=== PATIENT | female | born 1960 | race Caucasian/White ===

== ENCOUNTER → 2023-10-13 10:40 | Outpatient (REF) | payer MEDICARE, OTHER, SELFPAY | LOC: HWRAD 10:40 | PROVIDERS: ATTENDING PHYSICIAN Internal Medicine Hematology & Oncology; FAMILY PHYSICIAN Nurse Practitioner Family | DX: D83.9 Common variable immunodeficiency, unspecified (principal); E80.21 Acute intermittent (hepatic) porphyria; R11.2 Nausea with vomiting, unspecified; D51.3 Other dietary vitamin B12 deficiency anemia | CPT/HCPCS: 76700 ==

== ENCOUNTER → 2023-12-02 11:01 | Outpatient (REF) | payer MEDICARE, OTHER, SELFPAY ==
[2023-12-02 12:21] LABS: % Basophils 0.9 % (0-2); % Eosinophils 2.1 % (0-6); % Immature Granulocytes 0.9 % (0-0.5); % Lymphocytes 23.8 % (20.5-51.1); % Monocytes 12.5 % (1.7-9.3); % Neutrophils 59.8 % (42.2-75.2); Absolute Basophils 0.1 10^3/uL (0-0.2); Absolute Eosinophils 0.1 10^3/uL (0-0.7); Absolute Immature Granulocytes 0.1 10^3/uL (0-0.05); Absolute Lymphocytes 1.3 10^3/uL (1.2-3.4); Absolute Monocytes 0.7 10^3/uL (0.1-0.6); Absolute Neutrophils 3.2 10^3/uL (1.4-6.5); Hematocrit 33.6 % (37.0-47.0); Hemoglobin 11.4 g/dL (12.0-16.0); Mean Corp Hgb Conc. 33.9 g/dL (33.0-37.0); Mean Corpuscular Hgb 29.9 pg (27.0-31.0); Mean Corpuscular Volume 88.2 fL (81.0-99.0); Nucleated Red Blood Cells % 0 %; Platelet Count 247 10^3/uL (130-400); Red Blood Cell Count 3.81 10^6/uL (4.20-5.40); Red Cell Dist. Width 12.3 % (11.5-14.5); White Blood Cell Count 5.3 10^3/uL (4.8-10.8)
[2023-12-02 13:11] LABS: TSH 1.04 uIU/ml (0.47-4.68)
[2023-12-04 11:24] LABS: RMSF IgG Antibodies <1:64 (<1:64); RMSF IgM Antibodies <1:64 (<1:64)
[2023-12-04 19:00] LABS: Ehrlichia chaffeensis IgG Ab <1:64 (<1:64); Ehrlichia chaffeensis IgM Ab < 1:16 (< 1:16)
[2023-12-05 12:58] LABS: Lyme Antibody Screen, EIA Negative (Negative)
== END ==
LOC: REG 11:01
PROVIDERS: ATTENDING PHYSICIAN Nurse Practitioner Family; REFERRING PHYSICIAN Internal Medicine Hematology & Oncology
DX: E80.20 Unspecified porphyria (principal); G43.009 Migraine without aura, not intractable, without status migrainosus; R33.9 Retention of urine, unspecified; M25.50 Pain in unspecified joint; Z87.19 Personal history of other diseases of the digestive system; R79.89 Other specified abnormal findings of blood chemistry; W57.XXXA Bitten or stung by nonvenomous insect and other nonvenomous arthropods, initial encounter; E78.5 Hyperlipidemia, unspecified
CPT/HCPCS: 36415; 84443; 85025; 86618; 86666; 86753; 86757

== ENCOUNTER 2024-01-10 09:27 | Emergency (ER) | payer MEDICARE, OTHER, SELFPAY ==
[2024-01-10 09:44] VITALS: BP 142/89
--- NOTE | 2024-01-10 10:06 | ED.GENMED ---
History of Present Illness
General
Chief Complaint: Urinary Symptoms
Source: patient
Exam Limitations: none
Time Seen by Provider: 01/10/24 09:55
Nursing documentation reviewed up to this point in time: agreed with
Travel History
Have you had any contact with someone who has COVID-19?: No
Do you have any symptoms of coronavirus? Fever > 100 degrees, chills, cough, shortness of breath, sore throat, loss of taste or smell, muscle aches, or headache?: No
History of Present Illness
History of Present Illness:
Patient with history of porphyria, status post Panhematin infusion last Tuesday, presents to ED secondary to 3-day history of recurrent generalized weakness, nausea, abdominal pain with bloating, and difficulty with urination. Patient was admitted
at [facility] 1 month ago for similar complaint. Denies fever or chills. Denies vomiting. Denies diarrhea. Denies headache. Denies dizziness. Patient states that her symptoms are similar to previous episodes of porphyria exacerbation.
Past History
Past History
ED Past Medical History: Arrthythmia, Other (Porphyria, history of neuropathy, dyspnea, mitral regurg, stomach ulcers, bowel polyps, partial bowel obstruction, chronic UTI, adrenal insufficiency with Elmore's disease, chronic pain syndrome,
hemochromatosis. Diverticulitis, UTI, Intussuseption) and Other (Porphyria); Negative Asthma, HTN, Hypercholesterolemia or NIDDM
ED Past Surgical History: Appendectomy, Cholecystectomy, and Other (mvrepair, hemorrhoidectomy, bladder biopsy)
Social History
Tobacco: Former smoker
Alcohol: None
Drug: None
Personal:
Living: with family
Employment: Not employed
Family History
Family History: Other (Noncontributory)
Review of Systems
Review of Systems
Allergies reviewed?: Yes
All Other Systems: ROS reviewed and negative except as documented in HPI and ROS
Constitutional: Reports no symptoms; Denies fever
Respiratory: Reports no symptoms
Cardiac: Reports no symptoms
ABD/GI: Reports abdominal pain and nausea; Denies vomiting or diarrhea
: Reports difficulty voiding
Musculoskeletal: Reports no symptoms
Skin: Reports no symptoms
Neurological: Reports no symptoms
Phy Exam
Physical Exam
Physical Exam:
Physical Exam
General: mild distress, not acutely ill. afebrile
Head: nc/at. eomi
Neck: supple. no meningeal signs.
Heart: s1/s2 regular rate and rhythm, no murmur. equal radial pulses.
Lungs: no acute respiratory distress. clear bilaterally
Abdomen: normal bowel sounds. mild distention noted with diffuse tenderness to palpation.
Neuro: alert and oriented. no focal neurological deficits
Skin: no rash
Psychiatric: well kept. interactive and cooperative
Extremities: no edema. no calf tenderness.
Course
Orders/Labs/Results
Orders:
Orders
01/10/24 10:02
Bladder Scan- Treatment ONCE
Morin Placement- Treatment ONCE
Reason for insertion: Acute Retention
01/10/24 10:03
0.9% Sodium Chloride 500 ml [Nss] 500 ml IV BOLUS
Ondansetron Injectable [Zofran] 4 mg IV NOW STA
01/10/24 10:04
Pantoprazole [Protonix IV] 40 mg IV NOW STA
01/10/24 10:09
Ketorolac [Toradol] 15 mg IV NOW STA
01/10/24 10:22
CR Abdomen - 1 View Urgent
Comment:
Reason For Exam: abdominal pain w constipation
01/10/24 10:38
Basic Metabolic Panel Urgent
Complete Blood Count/With Diff Urgent
Magnesium Urgent
Urinalysis Reflex To Culture Urgent
Date Specimen was Collected: 01/10/24
Time Specimen was Collected: 10:24
01/10/24 12:[address] Non Medication Order As Directed
Physician Order: Please remove morin catheter prior to discharge
Above order entered?: Yes
Abnormal Lab Results
01/10/24
10:38
RBC 4.04 L 10^6/uL
(4.20-5.40)
Hct 35.7 L %
(37.0-47.0)
Abs Immat Gran (auto) 0.1 H 10^3/uL
(0-0.05)
Absolute Lymphs (auto) 1.0 L 10^3/uL
(1.2-3.4)
Immature Gran % 0.7 H %
(0-0.5)
Neutrophils % 79.7 H %
(42.2-75.2)
Lymphocytes % 13.2 L %
(20.5-51.1)
Chloride 108 H mmol/L
(98-107)
01/10/24 10:38
01/10/24 10:38
Vital Signs
Initial and Last Documented VS:
Initial Vital Signs
Temp Pulse BP Pulse Ox
98.2 F 71 142/89 100
01/10/24 09:44 01/10/24 09:44 01/10/24 09:44 01/10/24 09:44
Last Documented Vital Signs
Temp Pulse Resp BP Pulse Ox
98.2 F 56 16 120/75 99
01/10/24 09:44 01/10/24 13:20 01/10/24 13:20 01/10/24 13:20 01/10/24 13:20
MDM/Problems Addressed
MDM/Problems Addressed:
Bladder scan noted. Bladder emptied with temporary insertion of Morin catheter. Blood work unremarkable. Patient otherwise remains hemodynamically stable and nontoxic-appearing. Morin catheter will be removed and patient will be discharged home
with short course of pain medication.
Discussed with on-call tools administrator, Dr. Adam. Agrees with plan for discharge home with close outpatient follow-up, for potential repeat hematin treatment. Patient agrees with treatment plan.
*Critical Care Note
Total Time (30-74mins, 75-104mins- exclusive of procedures): Not Applicable
ED Attending Note
-
Portions of this chart may have been created with voice recognition software.� Occasional wrong word or��sound alike� substitutions may have occurred due to the inherent limitations of voice recognition software.
Discharge Plan
Departure
Patient Disposition: Home (Routine Discharge)
Date of Disposition: 01/10/24
Time of Disposition: 12:36
Patient with high blood pressure during this ER visit?: Yes
Discharge Problem:
Abdominal pain
Instructions: Abdominal Pain, Adult ED
Prescriptions:
New
oxycodone-acetaminophen [Percocet] 5-325 mg Tablet
1 tab PO Q6HPRN PRN (Reason: pain) Qty: 6 0RF
No Action
citalopram 10 MG tablet
10 mg PO HS
gabapentin 300 MG capsule
300 mg PO BID
topiramate 100 MG tablet
150 mg PO BID
Linzess 290 MCG capsule
290 mcg PO HS
cholecalciferol (vitamin D3) 2,000 UNITS tablet
2,000 units PO DAILY
hydrocortisone 20 MG tablet
20 mg PO DAILY
Visbiome 112.5 billion cell Capsule
1 cap PO DAILY
tramadol 50 mg Tablet
50 mg PO BIDPRN PRN (Reason: moderate pain)
omeprazole 20 mg Tablet,Delayed Release (Dr/Ec)
20 mg PO DAILY
hydrocortisone 20 mg Tablet
10 mg PO HS
Xtampza ER 27 mg Cap,Sprinkl,Er12hr(Dont Crush)
27 mg PO BIDPRN PRN (Reason: severe pain)
Emgality Pen 120 mg/mL pen injector
120 mg SC MONTHLY
Panhematin
1 dose IV MONTHLY
immune globulin (human) (IgG)
1 dose IV MONTHLY
Referrals:
Yimi Rust DO [Active] -
Deana Harden CRNP [Family Provider] -
Activity Restrictions/Additional Instructions:
As discussed, please follow-up with your tools administrator upon discharge for further evaluation and treatment. Your prescription has been sent electronically to [facility] pharmacy in [place].
Interventions
Interventions:
*Risk Screen - Suicide Last Done: 01/10/24 10:35
*General Assessment Last Done: 01/10/24 10:35
*Neglect/Abuse Screening Last Done: 01/10/24 10:35
ED- Fall Risk Assessment Last Done: 01/10/24 10:35
*ED COVID-19 Vaccine History Last Done: 01/10/24 10:35
*Nursing Disposition Last Done: 01/10/24 13:20
ED-Female Genitourinary Assessment Last Done: 01/10/24 10:35
Discharge Date and Time
Discharge Date/Time: 01/10/24 12:55
Print Language: POLISH
[2024-01-10 10:27] VITALS: BP 132/91
[2024-01-10 10:35] VITALS: BMI 22.1
[2024-01-10] MEDS: NSS 500 IV (10:42)
[2024-01-10] MEDS: ZOFRAN 4 MG IV (10:42)
[2024-01-10] MEDS: PROTONIX IV 40 MG IV (10:43)
[2024-01-10] MEDS: TORADOL 15 MG IV (10:43)
[2024-01-10 10:51] LABS: Urine Albumin Negative (Neg - Trace); Urine Bilirubin Negative (Negative); Urine Character Clear (Clear); Urine Color Yellow; Urine Glucose Negative (Negative); Urine Ketone Negative (Negative); Urine Leukocyte Negative (Negative); Urine Nitrite Negative (Negative); Urine Occult Blood Negative (Negative); Urine Urobilinogen Negative (Neg - 1+)
[2024-01-10 10:53] LABS: % Basophils 0.5 % (0-2); % Eosinophils 1.1 % (0-6); % Immature Granulocytes 0.7 % (0-0.5); % Lymphocytes 13.2 % (20.5-51.1); % Monocytes 4.8 % (1.7-9.3); % Neutrophils 79.7 % (42.2-75.2); Absolute Eosinophils 0.1 10^3/uL (0-0.7); Absolute Immature Granulocytes 0.1 10^3/uL (0-0.05); Absolute Monocytes 0.4 10^3/uL (0.1-0.6); Absolute Neutrophils 5.9 10^3/uL (1.4-6.5); Hematocrit 35.7 % (37.0-47.0); Mean Corp Hgb Conc. 33.6 g/dL (33.0-37.0); Mean Corpuscular Hgb 29.7 pg (27.0-31.0); Mean Corpuscular Volume 88.4 fL (81.0-99.0); Mean Platelet Volume 9.6 fL (7.4-10.4); Nucleated Red Blood Cells % 0 %; Platelet Count 152 10^3/uL (130-400); Red Blood Cell Count 4.04 10^6/uL (4.20-5.40); Red Cell Dist. Width 14.4 % (11.5-14.5); White Blood Cell Count 7.5 10^3/uL (4.8-10.8)
[2024-01-10 10:59] LABS: Calcium 8.9 mg/dl (8.4-10.2); Carbon Dioxide 26 mmol/L (22-30); Glucose 98 mg/dl (70-99); Magnesium 2.2 mg/dl (1.6-2.3); Potassium 4.3 mmol/L (3.5-5.1); Sodium 139 mmol/L (135-145)
[2024-01-10 11:06] LABS: Blood Urea Nitrogen 17 mg/dl (7-17); Chloride 108 mmol/L (98-107); Estimated Creatinine Clearance 54 ml/min; eGFR > 60.00
[2024-01-10 11:51] VITALS: BP 117/72
[2024-01-10 12:00] VITALS: BP 111/73
[2024-01-10 12:48] VITALS: BP 120/75
--- NOTE | 2024-01-10 12:55 | EDRN ---
Reviewed discharge instructions with patient. Verbalized understanding. Ambulated with steady gait to the lobby.
[2024-01-10 13:20] VITALS: BP 120/75
== END 2024-01-10 12:55 | disposition home or self-care (01) ==
LOC: EMR 09:27
PROVIDERS: EMERGENCY PHYSICIAN Emergency Medicine; FAMILY PHYSICIAN Nurse Practitioner Family
DX: R10.9 Unspecified abdominal pain (principal); R11.0 Nausea; R53.1 Weakness; R14.0 Abdominal distension (gaseous); R03.0 Elevated blood-pressure reading, without diagnosis of hypertension; G62.9 Polyneuropathy, unspecified; E80.20 Unspecified porphyria; I34.0 Nonrheumatic mitral (valve) insufficiency; K57.92 Diverticulitis of intestine, part unspecified, without perforation or abscess without bleeding; G43.909 Migraine, unspecified, not intractable, without status migrainosus; I48.91 Unspecified atrial fibrillation; I73.9 Peripheral vascular disease, unspecified; K21.9 Gastro-esophageal reflux disease without esophagitis; E83.119 Hemochromatosis, unspecified; G89.4 Chronic pain syndrome; E27.1 Primary adrenocortical insufficiency; Z87.11 Personal history of peptic ulcer disease; Z87.891 Personal history of nicotine dependence; Z87.440 Personal history of urinary (tract) infections; Z90.49 Acquired absence of other specified parts of digestive tract; Z88.1 Allergy status to other antibiotic agents; Z88.8 Allergy status to other drugs, medicaments and biological substances
CPT/HCPCS: 99284; 96374; 96375 ×2; 96361; 51701; 51798; 74018; 80048; 81003; 83735; 85025

== ENCOUNTER → 2024-01-23 08:33 | Outpatient (REF) | payer MEDICARE, OTHER, SELFPAY ==
[2024-01-23 09:36] LABS: % Basophils 0.5 % (0-2); % Immature Granulocytes 0.7 % (0-0.5); % Lymphocytes 16.9 % (20.5-51.1); % Neutrophils 73.9 % (42.2-75.2); Absolute Eosinophils 0.1 10^3/uL (0-0.7); Absolute Lymphocytes 0.9 10^3/uL (1.2-3.4); Absolute Monocytes 0.3 10^3/uL (0.1-0.6); Absolute Neutrophils 4.1 10^3/uL (1.4-6.5); Hematocrit 34.7 % (37.0-47.0); Hemoglobin 11.7 g/dL (12.0-16.0); Mean Corp Hgb Conc. 33.7 g/dL (33.0-37.0); Mean Platelet Volume 9.7 fL (7.4-10.4); Nucleated Red Blood Cells % 0 %; Platelet Count 221 10^3/uL (130-400); Red Cell Dist. Width 14.2 % (11.5-14.5); White Blood Cell Count 5.5 10^3/uL (4.8-10.8)
[2024-01-23 10:09] LABS: IgA 119 mg/dl (70-400); IgG 603 mg/dl (700-1600); IgM 34 mg/dl (40-230)
== END ==
LOC: OIDL 08:33
PROVIDERS: ATTENDING PHYSICIAN Internal Medicine Hematology & Oncology
DX: D83.9 Common variable immunodeficiency, unspecified (principal); E80.21 Acute intermittent (hepatic) porphyria; R11.2 Nausea with vomiting, unspecified; D51.3 Other dietary vitamin B12 deficiency anemia; D80.1 Nonfamilial hypogammaglobulinemia
CPT/HCPCS: 82784; 85025

== ENCOUNTER → 2024-02-15 06:26 | Day surgery (SDC) | payer MEDICARE, OTHER, SELFPAY | LOC: GI 06:26 | PROVIDERS: ATTENDING PHYSICIAN Internal Medicine; FAMILY PHYSICIAN Nurse Practitioner Family | DX: K29.50 Unspecified chronic gastritis without bleeding (principal); K22.4 Dyskinesia of esophagus; K44.9 Diaphragmatic hernia without obstruction or gangrene; R13.10 Dysphagia, unspecified | CPT/HCPCS: 43249; 43239; 88305; 88342 ==

== ENCOUNTER → 2024-03-08 14:38 | Outpatient (REF) | payer MEDICARE, OTHER, SELFPAY ==
[2024-03-08 16:46] LABS: ALT (SGPT) 12 U/L (0-35); AST (SGOT) 20 U/L (14-36); Albumin 4.3 g/dl (3.5-5.0); Alkaline Phosphatase 63 U/L (38-126); Amylase 135 U/L (30-110); Blood Urea Nitrogen 17 mg/dl (7-17); Calcium 8.8 mg/dl (8.4-10.2); Carbon Dioxide 27 mmol/L (22-30); Chloride 107 mmol/L (98-107); Glucose 77 mg/dl (70-99); Lipase 189 U/L (23-300); Potassium 3.8 mmol/L (3.5-5.1); Sodium 140 mmol/L (135-145); Total Bilirubin 0.2 mg/dl (0.2-1.3); eGFR > 60.00
[2024-03-08 16:55] LABS: Total Protein 6.6 g/dl (6.3-8.2)
[2024-03-08 17:17] LABS: TSH Reflex To Free T4 1.44 uIU/ml (0.47-4.68)
== END ==
LOC: RAD 14:38
PROVIDERS: ATTENDING PHYSICIAN Nurse Practitioner Family
DX: R14.0 Abdominal distension (gaseous) (principal); H66.90 Otitis media, unspecified, unspecified ear; F41.9 Anxiety disorder, unspecified
CPT/HCPCS: 36415; 74019; 80053; 82150; 83690; 84443

== ENCOUNTER → 2024-03-10 09:58 | Outpatient (REF) | payer MEDICARE, OTHER, SELFPAY | LOC: RAD 09:58 | PROVIDERS: ATTENDING PHYSICIAN Otolaryngology Facial Plastic Surgery; FAMILY PHYSICIAN Nurse Practitioner Family; REFERRING PHYSICIAN Internal Medicine Hematology & Oncology | DX: J32.0 Chronic maxillary sinusitis (principal) | CPT/HCPCS: 70486 ==

== ENCOUNTER → 2024-03-22 10:46 | Outpatient (REF) | payer MEDICARE, OTHER, SELFPAY ==
[2024-03-22 11:53] LABS: % Basophils 0.6 % (0-2); % Eosinophils 2.4 % (0-6); % Immature Granulocytes 0.2 % (0-0.5); % Lymphocytes 24.3 % (20.5-51.1); % Monocytes 7.6 % (1.7-9.3); % Neutrophils 64.9 % (42.2-75.2); Absolute Eosinophils 0.1 10^3/uL (0-0.7); Absolute Lymphocytes 1.3 10^3/uL (1.2-3.4); Absolute Monocytes 0.4 10^3/uL (0.1-0.6); Absolute Neutrophils 3.5 10^3/uL (1.4-6.5); Hematocrit 35.2 % (37.0-47.0); Hemoglobin 11.8 g/dL (12.0-16.0); Mean Corp Hgb Conc. 33.5 g/dL (33.0-37.0); Mean Corpuscular Hgb 30.5 pg (27.0-31.0); Mean Platelet Volume 10.2 fL (7.4-10.4); Nucleated Red Blood Cells % 0 %; Platelet Count 162 10^3/uL (130-400); Red Blood Cell Count 3.87 10^6/uL (4.20-5.40); Red Cell Dist. Width 13.4 % (11.5-14.5); White Blood Cell Count 5.4 10^3/uL (4.8-10.8)
[2024-03-22 12:05] LABS: Erythrocyte Sed Rate 11 mm/hour (0-20)
[2024-03-22 12:35] LABS: ALT (SGPT) 10 U/L (0-35); AST (SGOT) 19 U/L (14-36); Creatine Phosphokinase 70 U/L (30-135); Total Protein 6.4 g/dl (6.3-8.2)
[2024-03-22 12:40] LABS: C-Reactive Protein < 5.00 mg/L (0.0-10.00)
[2024-03-22 13:03] LABS: Glycohemoglobin (HgbA1c) 5.7 % (4.0-5.6)
[2024-03-22 13:11] LABS: TSH 1.95 uIU/ml (0.47-4.68)
[2024-03-22 13:30] LABS: Vitamin B12 596 pg/ml (239-931)
[2024-03-22 15:22] LABS: Lyme Antibody Screen, EIA Negative (Negative)
[2024-03-22 17:59] LABS: HIV Combo Negative (Negative)
[2024-03-22 18:07] LABS: Hepatitis C Antibody Negative (Negative)
[2024-03-23 14:47] LABS: Syphilis/T. pallidum Ab Reflex Negative (Negative)
[2024-03-23 22:13] LABS: ANA, IgG Reflex to HEp-2 None Detected (None Detected)
[2024-03-25 00:57] LABS: Albumin 4.22 g/dL (3.75-5.01); Alpha 1 Globulin 0.23 g/dL (0.19-0.46); Alpha 2 Globulin 0.64 g/dL (0.48-1.05); Free Kappa Light Chains,Quant 13.44 mg/L (3.30-19.40); Free Lambda Light Chains,Quant 12.29 mg/L (5.71-26.30); IgA 113 mg/dL (68-408); IgG 579 mg/dL (768-1632); IgM 29 mg/dL (35-263); Immunofixation Electrophoresis IFE Done; Kappa/Lambda Fr Light Ratio 1.09 (0.26-1.65); Total Protein-Electrophoresis 6.2 g/dL (6.3-8.2)
== END ==
LOC: REG 10:46
PROVIDERS: ATTENDING PHYSICIAN Internal Medicine Hematology & Oncology; FAMILY PHYSICIAN Nurse Practitioner Family; REFERRING PHYSICIAN Psychiatry & Neurology Neurology
DX: D83.9 Common variable immunodeficiency, unspecified (principal); E80.21 Acute intermittent (hepatic) porphyria; R11.2 Nausea with vomiting, unspecified; D51.3 Other dietary vitamin B12 deficiency anemia; D80.1 Nonfamilial hypogammaglobulinemia; R26.89 Other abnormalities of gait and mobility; E83.119 Hemochromatosis, unspecified; R94.6 Abnormal results of thyroid function studies
CPT/HCPCS: 36415; 82550; 82565; 82607; 82784; 83036; 83521; 84155; 84165; 84443; 84450; 84460; 85025; 85652; 86038; 86140; 86334; 86618; 86780; 86803; 87389

== ENCOUNTER → 2024-05-15 10:14 | Outpatient (REF) | payer MEDICARE, OTHER, SELFPAY | LOC: WDC 10:14 | PROVIDERS: ATTENDING PHYSICIAN Nurse Practitioner Family | DX: N64.59 Other signs and symptoms in breast (principal); L29.89 Other pruritus | CPT/HCPCS: 76642; 77062; 77066 ==

== ENCOUNTER → 2024-06-27 08:38 | Outpatient (REF) | payer MEDICARE, OTHER, SELFPAY | LOC: PAVMRI 08:38 | PROVIDERS: ATTENDING PHYSICIAN Nurse Practitioner Family | DX: G89.29 Other chronic pain (principal); M25.511 Pain in right shoulder | CPT/HCPCS: 73221 ==

== ENCOUNTER → 2024-09-14 12:31 | Outpatient (REF) | payer MEDICARE, OTHER, SELFPAY | LOC: PAVMRI 12:31 | PROVIDERS: ATTENDING PHYSICIAN Psychiatry & Neurology Neurology; FAMILY PHYSICIAN Nurse Practitioner Family | DX: G43.111 Migraine with aura, intractable, with status migrainosus (principal); R41.3 Other amnesia; R26.89 Other abnormalities of gait and mobility | CPT/HCPCS: 70553; A9575 ==

== ENCOUNTER → 2024-09-25 10:22 | Outpatient (REF) | payer MEDICARE, OTHER, SELFPAY ==
[2024-09-25 15:38] LABS: ALT (SGPT) 20 U/L (0-35); AST (SGOT) 23 U/L (14-36); Albumin 4.4 g/dl (3.5-5.0); Alkaline Phosphatase 54 U/L (38-126); Blood Urea Nitrogen 18 mg/dl (7-17); Carbon Dioxide 26 mmol/L (22-30); Chloride 106 mmol/L (98-107); Glucose 102 mg/dl (70-99); HDL Cholesterol 68 mg/dl; LDL Cholesterol, Calculated 200 mg/dl; Potassium 4.3 mmol/L (3.5-5.1); Sodium 138 mmol/L (135-145); Total Bilirubin 0.6 mg/dl (0.2-1.3); Total Cholesterol 287 mg/dl (50-199); Total Protein 6.3 g/dl (6.3-8.2); Triglyceride 97 mg/dl (10-149); Very Low Density Lipoprotein 19 mg/dl (0-30); eGFR > 60.00
== END ==
LOC: REG 10:22
PROVIDERS: ATTENDING PHYSICIAN Nurse Practitioner Family
DX: R79.89 Other specified abnormal findings of blood chemistry (principal); Z13.220 Encounter for screening for lipoid disorders
CPT/HCPCS: 36415; 80053; 80061

== ENCOUNTER → 2024-11-27 10:31 | Outpatient (REF) | payer MEDICARE, OTHER, SELFPAY ==
[2024-11-27 11:12] LABS: % Basophils 0.5 % (0-2); % Eosinophils 1.4 % (0-6); % Immature Granulocytes 0.3 % (0-0.5); % Lymphocytes 14.5 % (20.5-51.1); % Monocytes 4.9 % (1.7-9.3); % Neutrophils 78.4 % (42.2-75.2); Absolute Eosinophils 0.1 10^3/uL (0-0.7); Absolute Lymphocytes 0.9 10^3/uL (1.2-3.4); Absolute Monocytes 0.3 10^3/uL (0.1-0.6); Hematocrit 39.4 % (37.0-47.0); Mean Corpuscular Hgb 30.5 pg (27.0-31.0); Mean Corpuscular Volume 92.5 fL (81.0-99.0); Mean Platelet Volume 9.2 fL (7.4-10.4); Nucleated Red Blood Cells % 0 %; Platelet Count 183 10^3/uL (130-400); Red Blood Cell Count 4.26 10^6/uL (4.20-5.40); White Blood Cell Count 6.3 10^3/uL (4.8-10.8)
[2024-11-27 12:23] LABS: Ferritin 77.1 ng/ml (11.1-264.0)
[2024-11-27 13:14] LABS: ALT (SGPT) 11 U/L (0-35); AST (SGOT) 18 U/L (14-36); Albumin 4.5 g/dl (3.5-5.0); Alkaline Phosphatase 62 U/L (38-126); Direct Bilirubin 0.2 mg/dl (0.0-0.4); Total Bilirubin 0.6 mg/dl (0.2-1.3); Total Protein 6.4 g/dl (6.3-8.2)
== END ==
LOC: REG 10:31
PROVIDERS: ATTENDING PHYSICIAN Internal Medicine Hematology & Oncology; FAMILY PHYSICIAN Family Medicine
DX: D83.9 Common variable immunodeficiency, unspecified (principal); E80.21 Acute intermittent (hepatic) porphyria; R11.2 Nausea with vomiting, unspecified; D51.3 Other dietary vitamin B12 deficiency anemia; D80.1 Nonfamilial hypogammaglobulinemia; E86.0 Dehydration
CPT/HCPCS: 36415; 80076; 82728; 85025

== ENCOUNTER → 2024-12-19 14:04 | Outpatient (REF) | payer MEDICARE, OTHER, SELFPAY ==
[2024-12-19 15:53] LABS: ALT (SGPT) 13 U/L (0-35); AST (SGOT) 20 U/L (14-36); Albumin 4.2 g/dl (3.5-5.0); Alkaline Phosphatase 47 U/L (38-126); Blood Urea Nitrogen 14 mg/dl (7-17); Calcium 9.1 mg/dl (8.4-10.2); Carbon Dioxide 27 mmol/L (22-30); Glucose 81 mg/dl (70-99); Sodium 141 mmol/L (135-145); Total Bilirubin 0.4 mg/dl (0.2-1.3); Total Protein 6.4 g/dl (6.3-8.2); eGFR > 60.00
[2024-12-19 16:04] LABS: Chloride 105 mmol/L (98-107)
[2024-12-19 16:55] LABS: Folate 11.1 ng/ml (2.76-20); Vitamin B12 716 pg/ml (239-931)
[2024-12-20 12:11] LABS: Rheumatoid Agglutinin Less Than 10 IU (<10 IU)
== END ==
LOC: REG 14:04
PROVIDERS: ATTENDING PHYSICIAN Nurse Practitioner Family
DX: M25.551 Pain in right hip (principal); M25.552 Pain in left hip; M54.50 Low back pain, unspecified; M79.605 Pain in left leg; M62.838 Other muscle spasm; E80.29 Other porphyria; R79.89 Other specified abnormal findings of blood chemistry; Z79.899 Other long term (current) drug therapy
CPT/HCPCS: 36415; 73522; 80053; 82607; 82746; 86430

== ENCOUNTER 2025-03-28 13:59 | Inpatient (IN) | payer MEDICARE, OTHER, SELFPAY ==
[2025-03-25] VITALS (9 sets, daily range): BP systolic 110–137; BP diastolic 73–94; BMI 21.5; BMI 21.2
--- NOTE | 2025-03-25 11:46 | ED.GENMED ---
History of Present Illness
General
Chief Complaint: Urinary Symptoms
Source: patient
Exam Limitations: none
Time Seen by Provider: 03/25/25 11:18
Nursing documentation reviewed up to this point in time: agreed with
History of Present Illness
History of Present Illness:
Patient is a 64-year-old female with past medical history of diverticulitis neuropathy A-fib regurgitation mitral valve repair adrenal insufficiency Lagrange's disease, questionable porphyria, adrenal insufficiency hemochromatosis secondary to
Panhematin infusions presents to the ER for evaluation of abdominal pain. She has had abdominal discomfort for the past several days. She feels pressure when she tries to have a bowel movement or when she urinates. She does not feel that she is
completely emptying her bladder she is only voiding small amounts at a time. She does report however that she is not drinking a lot as well because she was concerned this may make her abdominal pain worse. she reports her last full bowel movement
was Tuesday 2 days ago despite taking 2 doses of milk of magnesia. She was hospitalized last week at [facility] for porphyria. She did receive a dose of Panhematin via her port.
She also was recently treated for UTI however was on Cipro and was told that this antibiotic was not sensitive. She was prescribed a new antibiotic however has not taken it yet.
She denies any fever or chills. She does feel nauseous.
Past History
Past History
ED Past Medical History: Arrthythmia, Other (Porphyria, history of neuropathy, dyspnea, mitral regurg, stomach ulcers, bowel polyps, partial bowel obstruction, chronic UTI, adrenal insufficiency with Paul's disease, chronic pain syndrome,
hemochromatosis. Diverticulitis, UTI, Intussuseption) and Other (Porphyria); Negative Asthma, HTN, Hypercholesterolemia or NIDDM
ED Past Surgical History: Appendectomy, Cholecystectomy, and Other (mvrepair, hemorrhoidectomy, bladder biopsy)
Social History
Tobacco: Former smoker
Alcohol: None
Drug: None
Personal:
Living: with family
Employment: Not employed
Family History
Family History: Other (Noncontributory)
Phy Exam
General Physical Exam
General Presentation: no apparent distress
General age: appears stated age
General Skin: warm and dry
General Habitus: normal
General Mental: alert
General Hydration: dry mucous membranes
Cardiovascular Exam
Cardiovascular Exam: regular rate/rhythm, no murmur and normal peripheral pulses
Pulmonary Exam
Pulmonary Exam: lungs clear and no respiratory distress
Gastrointestinal Exam
Gastrointestinal Exam: other (Abdomen distended tender throughout positive bowel sounds)
Neurological Exam
Neurological Exam: alert and oriented x3
Musculoskeletal Exam
Musculoskeletal Exam: full ROM
Skin Exam
Skin Exam: normal color and warm/dry
Psychiatric Exam
Psychiatric Exam: normal mood/affect
Course
Orders/Labs/Results
Orders:
Orders
03/25/25 11:23
Test Result ONCE
03/25/25 11:26
Complete Blood Count/With Diff Urgent
Comprehensive Metabolic Panel Urgent
HCG, Serum Qualitative Screen Urgent
Lipase Urgent
Urinalysis Reflex To Culture Urgent
Date Specimen was Collected: 03/25/25
Time Specimen was Collected: 11:22
03/25/25 11:54
Lactic Acid Urgent
03/25/25 12:15
CT Abd/pel W Iv And Oral Contr Urgent
Comment:
Reason For Exam: abd pain /constipation hx porphria
IV Insert/Care/Rem.- Treatment PRN
0.9% Sodium Chloride 1000 ml [Nss] 1,000 ml IV BOLUS
Iohexol [Omnipaque] See Protocol PO NOW STA
Ketorolac [Toradol] 15 mg IV NOW STA
Ondansetron Injectable [Zofran] 4 mg IV NOW STA
03/25/25 12:16
Electrocardiogram (*1) Stat
Reason for Study: Other
Other Reason for Exam: chest pain
EKG- Treatment ONCE
03/25/25 14:04
Morphine Sulfate 2 mg IV NOW STA
Abnormal Lab Results
03/25/25
11:26
RBC 4.00 L 10^6/uL
(4.20-5.40)
Hgb 11.9 L g/dL
(12.0-16.0)
Hct 35.9 L %
(37.0-47.0)
Abs Immat Gran (auto) 0.1 H 10^3/uL
(0-0.05)
Absolute Lymphs (auto) 1.1 L 10^3/uL
(1.2-3.4)
Immature Gran % 1.6 H %
(0-0.5)
Lymphocytes % 14.6 L %
(20.5-51.1)
Chloride 109 H mmol/L
(98-107)
BUN 18 H mg/dl
(7-17)
Glucose 108 H mg/dl
(70-99)
03/25/25 11:26
03/25/25 11:26
Vital Signs
Initial and Last Documented VS:
Initial Vital Signs
Temp Pulse Resp BP Pulse Ox
98.4 F 87 18 136/79 99
03/25/25 10:56 03/25/25 10:56 03/25/25 10:56 03/25/25 10:56 03/25/25 10:56
Last Documented Vital Signs
Temp Pulse Resp BP Pulse Ox
98.4 F 87 18 122/75 98
03/25/25 10:56 03/25/25 10:56 03/25/25 10:56 03/25/25 14:21 03/25/25 16:00
MDM/Problems Addressed
MDM/Problems Addressed:
As documented patient is a 64-year-old female with porphyria presents to the ER complaining of abdominal pain. She has been seen and admitted previously for this. She was recently admitted to [place] and had an infusion of Panhematin. She felt
constipated as well and felt some difficulty urinating and actually getting her urine out though no dysuria or fevers or burning. Patient presents awake alert she is distended on exam. She appears uncomfortable. She denies any fevers and is
afebrile. She was not retaining urine bladder scan was done by nurse. She is afebrile with a normal white count and her chemistry is unremarkable urinalysis negative. Patient has required pain medication here was given fluids. CAT scan does show
constipation however no obstruction and no other acute findings.
Patient continues to appear uncomfortable and does feel that the symptoms are consistent with her porphyria. Case discussed with hematology will admit for hydration/pain control.
Chronic conditions affecting care:
Porphyria
*Radiology
Radiology exam reviewed: radiology read reviewed (CAT scan shows a large volume of stool within the colon no other acute finding)
*Pulse Oximetry
SaO2: 99
Oxygen Mode of Delivery: Room air
Patient hypoxic: no
*Critical Care Note
Total Time (30-74mins, 75-104mins- exclusive of procedures): Not Applicable
Patient Management
Discussion with other providers: [facility] (Hematology Dr. Shane)
ED Attending Note
-
Portions of this chart may have been created with voice recognition software.� Occasional wrong word or��sound alike� substitutions may have occurred due to the inherent limitations of voice recognition software.
Discharge Plan
Departure
Patient Disposition: Admit
Date of Disposition: 03/25/25
Time of Disposition: 17:05
Admit to: Med/Surg
Admit to doctor: hospitaist
Presentation/result/management discussed w/ accepting MD/DO: Hospitalist
Patient with high blood pressure during this ER visit?: Yes
Condition: Fair
Discharge Problem:
Abdominal pain
Prescriptions:
No Action
citalopram 10 MG tablet
10 mg PO HS
gabapentin 300 MG capsule
300 mg PO BID
topiramate 100 MG tablet
150 mg PO BID
Linzess 290 MCG capsule
290 mcg PO HS
cholecalciferol (vitamin D3) 2,000 UNITS tablet
2,000 units PO DAILY
hydrocortisone 20 MG tablet
20 mg PO DAILY
Visbiome 112.5 billion cell Capsule
1 cap PO DAILY
tramadol 50 mg Tablet
50 mg PO BIDPRN PRN (Reason: moderate pain)
omeprazole 20 mg Tablet,Delayed Release (Dr/Ec)
20 mg PO DAILY
hydrocortisone 20 mg Tablet
10 mg PO HS
Xtampza ER 27 mg Cap,Sprinkl,Er12hr(Dont Crush)
27 mg PO BIDPRN PRN (Reason: severe pain)
Emgality Pen 120 mg/mL pen injector
120 mg SC MONTHLY
Panhematin
1 dose IV MONTHLY
immune globulin (human) (IgG)
1 dose IV MONTHLY
oxycodone-acetaminophen [Percocet] 5-325 mg Tablet
1 tab PO Q6HPRN PRN (Reason: pain) Qty: 6 0RF
Referrals:
Deana Harden CRNP [Family Provider, Family Practice]
Interventions
Interventions:
*Risk Screen - Suicide Last Done: 03/25/25 10:56
*General Assessment Last Done: 03/25/25 10:56
*Neglect/Abuse Screening Last Done: 03/25/25 10:56
*ED- Fall Risk Assessment Last Done: 03/25/25 11:06
*ED COVID-19 Vaccine History Last Done: 03/25/25 11:06
QJ-Blukkz-Dnmzsotvrv Assessment Last Done: 03/25/25 11:06
ED-Female Genitourinary Assessment Last Done: 03/25/25 11:06
Discharge Date and Time
Print Language: [place]
[2025-03-25 11:56] LABS: Urine Character Clear (Clear)
[2025-03-25 12:02] LABS: Hematocrit 35.9 % (37.0-47.0); Hemoglobin 11.9 g/dL (12.0-16.0); Mean Corp Hgb Conc. 33.1 g/dL (33.0-37.0); Mean Corpuscular Volume 89.8 fL (81.0-99.0); Nucleated Red Blood Cells % 0 %; Platelet Count 188 10^3/uL (130-400); Red Cell Dist. Width 13.1 % (11.5-14.5)
[2025-03-25] MEDS: NSS 1000 IV (12:22)
[2025-03-25] MEDS: ZOFRAN 4 MG IV (12:24)
[2025-03-25] MEDS: OMNIPAQUE 50 ML PO (12:24)
[2025-03-25] MEDS: TORADOL 15 MG IV (12:24)
[2025-03-25 12:38] LABS: HCG, Serum Qualitative Screen Negative
[2025-03-25 12:57] LABS: ALT (SGPT) 12 U/L (0-35); AST (SGOT) 15 U/L (14-36); Albumin 4.0 g/dl (3.5-5.0); Alkaline Phosphatase 47 U/L (38-126); Blood Urea Nitrogen 18 mg/dl (7-17); Calcium 8.5 mg/dl (8.4-10.2); Carbon Dioxide 24 mmol/L (22-30); Chloride 109 mmol/L (98-107); Estimated Creatinine Clearance 42 ml/min; Glucose 108 mg/dl (70-99); Lipase 149 U/L (23-300); Potassium 3.9 mmol/L (3.5-5.1); Sodium 139 mmol/L (135-145); Total Protein 6.4 g/dl (6.3-8.2); eGFR > 60.00
[2025-03-25] MEDS: MORPHINE SULFATE 2 MG IV (14:06)
[2025-03-25] MEDS: MORPHINE SULFATE 4 MG IV (16:58)
--- NOTE | 2025-03-25 18:22 | HPS.HSE ---
Family Physician
-
Family Physician: RAMU Ambrose
Chief Complaint
-
Abdominal pain
History of Present Illness
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
presents with a 1 week history of abdominal pain which is mid abdominal, lower pelvic radiates into the growing and wraps around to her backside, sharp, constant however at periods increases in intensity, not associated with anything, not relieved
by anything. Has not had a bowel movement in 1+ week. Over the weekend used mag citrate multiple doses and had a small bowel movement that was not significant. She has not been really eating or drinking much as she is scared to urinate because
she has to strain to pass urine and has not been eating much as she has not had a bowel movement and for lack of appetite over the past 1 week.
She tells me that she was recently admitted to [facility] for a porphyruria attack requiring Panhematin infusion
Past surgical history appendectomy cholecystectomy mitral valve repair hemorrhoidectomy bladder biopsy
Social history former smoker does not use alcohol nor illicit drug use
Medical History
Past Medical History
Past Medical History: Reports GERD, Valvular Disease, Psychiatric and Other
Past Surgical History: Reports Appendectomy
Social History
Tobacco: Former Smoker
Alcohol: None
Drug: None
Family History
Family History: Not pertinent
Allergies / Home Medications
Allergies reflects when Allergies were last updated in [email or web address].
Home Medications with original date entered in [email or web address]
Allergy/Medication List:
Allergies
Allergy/AdvReac Type Severity Reaction Status Date / Time
fluconazole (From Diflucan) Allergy Rash Verified 03/25/25 10:56
levofloxacin (From Levaquin) Allergy Rash Verified 03/25/25 10:56
Porphyria Allergy Review Uncoded 01/10/24 09:50
list of
medications
that are
unsafe
Home Medications
citalopram 10 mg tablet 10 mg PO HS Mental Health/Anxiety 07/16/17
gabapentin 300 mg capsule 300 mg PO HS mild Pain 07/16/17
topiramate 100 mg tablet 150 mg PO BID migraines 07/23/18
cholecalciferol (vitamin D3) 50 mcg (2,000 unit) tablet 2,000 units PO DAILY Supplement 01/15/19
hydrocortisone 20 mg tablet 20 mg PO DAILY Anti-inflammatory 05/19/20
Lactobac no.2-Bifidobac no.1-S. thermo 112.5 billion cell capsule (Visbiome) 1 cap PO DAILY Gastrointestinal issue 02/23/22
omeprazole 20 mg tablet,delayed release 20 mg PO DAILY Gastrointestinal Issue 03/02/23
tramadol 50 mg tablet 50 mg PO BIDPRN PRN moderate pain 03/02/23
hydrocortisone 20 mg tablet 10 mg PO QPM Anti-Inflammatory 06/20/23
galcanezumab-gnlm 120 mg/mL subcutaneous pen injector (Emgality Pen) 120 mg SC MONTHLY migraines 01/10/24
Review of Systems
-
A 12 point ROS was completed and negative except as noted: Yes
Physical Exam
Vital Signs
Vital Signs
Temp Pulse Resp BP Pulse Ox
98.4 F 87 18 137/94 98
03/25/25 10:56 03/25/25 10:56 03/25/25 10:56 03/25/25 16:54 03/25/25 16:10
Physical Exam
General: Pain
Laboratory Results
-
03/25/25 11:26
03/25/25 11:26
Laboratory Results
Lactic Acid 1.2 mmol/L (0.7-2.0) 03/25/25 11:54
Total Bilirubin 0.3 mg/dl (0.2-1.3) 03/25/25 11:26
AST 15 U/L (14-36) 03/25/25 11:26
ALT 12 U/L (0-35) 03/25/25 11:26
Alkaline Phosphatase 47 U/L (38-126) 03/25/25 11:26
Lipase 149 U/L (23-300) 03/25/25 11:26
Impression/Plan
-
NAD
Scleral Anicteric
MMM
No JVD
CTABL
RRR, S1/S2
Distended tenderness throughout no guarding positive bowel
Warm, Dry
AAOx3
Tearful
Intractable abdominal pain
Differential diagnosis broad however likely related to constipation as there is large volume stool within the colon versus acute porphyria attack
IV fluids with dextrose containing fluids
Bowel regimen with suppository and milk of molasses enema along with oral bowel regimen
Clear liquid diet advance as tolerated
If not improving may require GI/surgery consult for disimpaction
Consult hematology/oncology follows with Dr. Rust/Todd
GERD
Continue PPI
Migraine
Continue topiramate
Adrenal insufficiency
Continue hydrocortisone
Chronic regional pain syndrome
Continue gabapentin
Anxiety
Continue citalopram
Vitamin D insufficiency
Continue colecalciferol
DVT prophylaxis
Low molecular weight heparin
[2025-03-25] MEDS: TOPAMAX 150 MG PO (20:14)
[2025-03-25] MEDS: TYLENOL 650 MG PO (20:14)
[2025-03-25] MEDS: HYDROCORTONE/CORTEF 10 MG PO (20:15)
[2025-03-25] MEDS: MORPHINE SULFATE 1 MG IV ×2 (20:15→22:42)
[2025-03-25] MEDS: D5/0.45%NACL 1000 IV (20:17)
[2025-03-25] MEDS: CELEXA 10 MG PO (22:28)
[2025-03-25] MEDS: NEURONTIN 300 MG PO (22:28)
[2025-03-25] MEDS: ULTRAM 50 MG PO (22:28)
[2025-03-26] MEDS: TYLENOL PO ×2 (00:29→23:52)
[2025-03-26] MEDS: TYLENOL 650 MG PO ×5 (04:51→19:35)
[2025-03-26] MEDS: MORPHINE SULFATE 1 MG IV ×2 (04:52→08:35)
[2025-03-26 05:05] LABS: Hematocrit 35.2 % (37.0-47.0); Hemoglobin 11.7 g/dL (12.0-16.0); Mean Corp Hgb Conc. 33.2 g/dL (33.0-37.0); Mean Corpuscular Volume 88.9 fL (81.0-99.0); Platelet Count 180 10^3/uL (130-400); Red Cell Dist. Width 13.1 % (11.5-14.5)
[2025-03-26 05:27] LABS: Blood Urea Nitrogen 12 mg/dl (7-17); Calcium 8.1 mg/dl (8.4-10.2); Carbon Dioxide 22 mmol/L (22-30); Chloride 114 mmol/L (98-107); Estimated Creatinine Clearance 53 ml/min; Glucose 112 mg/dl (70-99); Magnesium 2.3 mg/dl (1.6-2.3); Potassium 4.0 mmol/L (3.5-5.1); Sodium 140 mmol/L (135-145); eGFR > 60.00
[2025-03-26 05:57] LABS: TSH 1.10 uIU/ml (0.47-4.68)
[2025-03-26 07:20] VITALS: BP 108/70
[2025-03-26] MEDS: TOPAMAX 150 MG PO ×2 (08:37→19:36)
[2025-03-26] MEDS: VITAMIN D3 (cholecalciferol) 50 MCG PO (08:37)
[2025-03-26] MEDS: PROTONIX 40 MG PO (08:38)
[2025-03-26] MEDS: VISBIOME 1 CAP PO (08:38)
[2025-03-26] MEDS: HYDROCORTONE/CORTEF 20 MG PO (08:38)
[2025-03-26] MEDS: D5/0.45%NACL 1000 IV (09:31)
[2025-03-26] MEDS: ZOFRAN 4 MG IV ×2 (10:14→21:44)
[2025-03-26] MEDS: MIRALAX 17 GRAMS PO (12:15)
[2025-03-26] MEDS: SENOKOT-S 1 TABLET PO (12:18)
--- NOTE | 2025-03-26 12:40 | W.PN.HOSP.TC ---
Today's Communication/Plan
-
IV Hydration
Hem eval
Bowel Reg with Milk of molassis
Repeat Obstruction series
Assessment / Plan
Assessment / Plan
NAD
Scleral Anicteric
MMM
No JVD
CTABL
RRR, S1/S2
Distended improved slightly tenderness throughout no guarding positive bowel sounds
Warm, Dry
AAOx3
Tearful
Intractable abdominal pain
Differential diagnosis broad however likely related to constipation as there is large volume stool within the colon versus acute porphyria attack
IV fluids with dextrose containing fluids
Bowel regimen with suppository and milk of molasses enema along with oral bowel regimen
Clear liquid diet advance as tolerated
If not improving may require GI/surgery consult for disimpaction
Consult hematology/oncology follows with Dr. Rust/Todd
GERD
Continue PPI
Migraine
Continue topiramate
Adrenal insufficiency
Continue hydrocortisone
Chronic regional pain syndrome
Continue gabapentin
Anxiety
Continue citalopram
Vitamin D insufficiency
Continue colecalciferol
DVT prophylaxis
Low molecular weight heparin
Anticipated Discharge: 24 - 48 hours
Subjective/Interval History
-
Date of Service: March 26, 2025
Seen and exmamined. No nwe complaints. No acute overnight events
BM extremely small but formed movement, but most is liquid
Still with abd pain
Objective Data
-
Labs:
Laboratory Results
03/26/25
04:37
WBC 9.5
Hgb 11.7 L
Hct 35.2 L
Plt Count 180
Sodium 140
Potassium 4.0
Chloride 114 H
Carbon Dioxide 22
BUN 12
Creatinine 0.8
Glucose 112 H
Calcium 8.1 L
Vital Signs:
Vital Signs
Temp Pulse Resp BP Pulse Ox
97.6 F 53 16 108/70 99
03/26/25 07:20 03/26/25 07:20 03/26/25 07:20 03/26/25 07:20 03/26/25 07:20
I&O
03/25/25 03/26/25 03/27/25
06:59 06:59 06:59
Intake Total 960 / 960
Balance 960 / 960
[2025-03-26] MEDS: DILAUDID 0.25 MG IV ×3 (13:02→21:53)
--- NOTE | 2025-03-26 13:58 | CON.ONC ---
Consultation
-
Date Consultation Requested: 03/26/25
Date Consultation Performed: 03/26/25
Requesting Provider: Dr. Nadir Del Cid
Performing Provider: Chandrika GUALLPA
Reason for Consultation: porphoryia
Impression
Impression
p/w abdominal pain, nausea which may reflect recurrent chronic constipation. She feels improved after moving her bowels overnight. ab xray today continues to show moderate fecal material thought the colon
AIP s/p panhematin 03/13/2025
Hx iron overload due to panhematin
Vitamin B12 deficency -receives parentaral B12 OP
Plan
Plan
constipation management per primary service
hold off on inpatient panhematin discussed with patient -agreeable since feels better after moving bowels
constipation may reflect chronic and recent increase in opioid use discussed with pt
check ferritin, B12
Has OP follow up with Dr. Rust 04/01/2025 for further management
Patient History
History of Present Illness
64yo F who presented with abdominal pain, nausea, and lower extremity discomfort. She reports no bowel movement in 7 days. She had similar symptoms with constipation recently during her [facility] admission. Her 03/25/2025 CT ab/pelvis showed a large stool
burden. She was admitted, started on D5/0.45% IVF, received colace/senna and miralax. She feels better after she moved her bowels overnight. She had been taking tramadol, approximately #180/month, escribed by her PCP, however, more recently taking
oxycodone prn for her intermittent lower abdomen 'stabbing' pain. She has used Tylenol, tramadol, ketorolac, IV morphine and IV hydromorphone since she has been admitted. She is also using zofran for nausea.
In brief, she carries a diagnosis of intermittent porphyria. She has most recently been treated with panhematin 03/13/2025 in the office.
Afebrile, no hypoxia or hypotension. Pt did not awaken to verbal stimuli or light tough. She was somewhat difficult to arrouse but oriented and appropriate when awake.
Past-Medical/Surgical History
PMH common variable immunodeficiency, nonfamilial hypogammaglobulinemia, b12 deficiency, acute intermittent porphyria, iron overload, peripheral neuropathy, jarocho's disease, empty sella syndrome, mitral regurgitation,
PSH: appendectomy cholecystectomy mitral valve repair hemorrhoidectomy bladder biopsy
Social former smoker, denies ETOH or recreational drugs. .
Family denies malignancy
Patient Medication
�Medication �Instructions �Recorded �Confirmed �Last Taken �Type
citalopram 10 mg tablet 10 mg PO HS Mental Health/Anxiety 07/16/17 03/25/25 01/09/24 History
gabapentin 300 mg capsule 300 mg PO HS mild Pain 07/16/17 03/25/25 01/10/24 History
topiramate 100 mg tablet 150 mg PO BID migraines 07/23/18 03/25/25 03/25/25 History
cholecalciferol (vitamin D3) 50 2,000 units PO DAILY Supplement 01/15/19 03/25/25 01/10/24 History
mcg (2,000 unit) tablet
hydrocortisone 20 mg tablet 20 mg PO DAILY Anti-inflammatory 05/19/20 03/25/25 03/25/25 History
Lactobac no.2-Bifidobac no.1-S. 1 cap PO DAILY Gastrointestinal 02/23/22 03/25/25 01/10/24 History
thermo 112.5 billion cell capsule issue
(Visbiome)
omeprazole 20 mg tablet,delayed 20 mg PO DAILY Gastrointestinal 03/02/23 03/25/25 01/10/24 History
release Issue
tramadol 50 mg tablet 50 mg PO BIDPRN PRN moderate pain 03/02/23 03/25/25 01/10/24 History
hydrocortisone 20 mg tablet 10 mg PO QPM Anti-Inflammatory 06/20/23 03/25/25 03/24/25 History
galcanezumab-gnlm 120 mg/mL 120 mg SC MONTHLY migraines 01/10/24 03/25/25 12/19/23 History
subcutaneous pen injector
(Emgality Pen)
Active Medications
Generic Name Dose Route Start Last Admin
Trade Name Freq PRN Reason Stop Dose Admin
Acetaminophen 650 mg 03/25/25 20:00 03/26/25 12:15
Acetaminophen 325 Mg Tablet PO 04/22/25 19:59 650 mg
Q4HWA LIZET Administration
Bisacodyl 10 mg 03/25/25 19:31
Bisacodyl 10 Mg Rectal Suppository RECTAL 04/22/25 19:30
[id number] PRN
constipation
Cholecalciferol 50 mcg 03/26/25 08:00 03/26/25 08:37
Cholecalciferol (Vitamin D3) 50 Mcg Tablet (2,000 Units) PO 04/23/25 07:59 50 mcg
DAILY LIZET Administration
Citalopram Hydrobromide 10 mg 03/25/25 22:00 03/25/25 22:28
Citalopram 10 Mg Tablet PO 04/22/25 21:59 10 mg
HS LIZET Administration
Gabapentin 300 mg 03/25/25 22:00 03/25/25 22:28
Gabapentin 300 Mg Capsule PO 04/22/25 21:59 300 mg
HS LIZET Administration
Hydrocortisone 20 mg 03/26/25 08:00 03/26/25 08:38
Hydrocortisone 20 Mg Tablet PO 04/23/25 07:59 20 mg
DAILY LIZET Administration
Hydrocortisone 10 mg 03/25/25 19:31 03/25/25 20:15
Hydrocortisone 20 Mg Tablet PO 04/22/25 19:30 10 mg
QPM LIZET Administration
Hydromorphone HCl 0.25 mg 03/26/25 12:39 03/26/25 13:02
Hydromorphone 0.25 Mg/0.5 Ml Syringe IV 04/09/25 12:38 0.25 mg
Q4HPRN PRN Administration
pain
Dextrose/Sodium Chloride 1,000 mls @ 80 mls/hr 03/25/25 19:31 03/26/25 09:31
D5/0.45%Nacl IV 1,000 mls
.[id number] LIZET Administration
Morphine Sulfate 1 mg 03/25/25 22:24 03/26/25 08:35
Morphine 2 Mg/Ml Syringe IV 04/08/25 22:23 1 mg
On Hold: 03/26/25 12:40 Q2HPRN PRN Administration
severe pain
Ondansetron HCl 4 mg 03/26/25 09:52 03/26/25 10:14
Ondansetron 4 Mg/2 Ml Vial IV 04/23/25 09:51 4 mg
Q6HPRN PRN Administration
NAUSEA/VOMITING
Pantoprazole Sodium 40 mg 03/26/25 08:00 03/26/25 08:38
Pantoprazole 40 Mg Delayed Release Tablet PO 04/23/25 07:59 40 mg
DAILY LIZET Administration
Polyethylene Glycol 17 grams 03/25/25 19:31 03/26/25 12:15
Polyethylene Glycol Powder 17 Grams Packet PO 04/22/25 19:30 17 grams
DAILYPRN PRN Administration
constipation
Senna/Docusate Sodium 1 tablet 03/25/25 19:31 03/26/25 12:18
Docusate W/Senna (Oly-Colace) Tablet PO 04/22/25 19:30 1 tablet
BIDPRN PRN Administration
constipation
Sodium Chloride 0 flush 03/25/25 20:00
Sodium Chloride 0.9% (Flush) Syringe IV 04/22/25 19:59
PER PROTOCOL LIZET
Topiramate 150 mg 03/25/25 20:00 03/26/25 08:37
Topiramate 100 Mg Tablet PO 04/22/25 19:59 150 mg
BID LIZET Administration
Tramadol HCl 50 mg 03/25/25 19:31 03/25/25 22:28
Tramadol Hcl 50 Mg Tablet PO 04/22/25 19:30 50 mg
BIDPRN PRN Administration
moderate pain
Review of Systems
-
ROS is notable for HPI, otherwise negative
Physical Exam
-
General: No Apparent Distress and Comfortable
HEENT: Moist Mucous Membranes; Negative Jaundice
Cardiology: Normal Sinus Rhythm
Pulmonary: Clear
GI: Soft and Distended
Extremities: Pulses Present; Negative Edema
Neurology: Non Focal
Skin: Warm
Psych: Calm
Labs
Lab Results
WBC 9.5 10^3/uL (4.8-10.8) 03/26/25 04:37
RBC 3.96 10^6/uL (4.20-5.40) L 03/26/25 04:37
Hgb 11.7 g/dL (12.0-16.0) L 03/26/25 04:37
Hct 35.2 % (37.0-47.0) L 03/26/25 04:37
MCV 88.9 fL (81.0-99.0) 03/26/25 04:37
MCH 29.5 pg (27.0-31.0) 03/26/25 04:37
MCHC 33.2 g/dL (33.0-37.0) 03/26/25 04:37
RDW 13.1 % (11.5-14.5) 03/26/25 04:37
Plt Count 180 10^3/uL (130-400) 03/26/25 04:37
MPV 9.4 fL (7.4-10.4) 03/26/25 04:37
Abs Immat Gran (auto) 0.1 10^3/uL (0-0.05) H 03/25/25 11:26
Absolute Neuts (auto) 5.8 10^3/uL (1.4-6.5) 03/25/25 11:26
Absolute Lymphs (auto) 1.1 10^3/uL (1.2-3.4) L 03/25/25 11:26
Absolute Monos (auto) 0.6 10^3/uL (0.1-0.6) 03/25/25 11:
Absolute Eos (auto) 0.1 10^3/uL (0-0.7) 03/25/25 11:
Absolute Basos (auto) 0.0 10^3/uL (0-0.2) 03/25/25 11:
Immature Gran % 1.6 % (0-0.5) H 03/25/25 11:
Neutrophils % 74.9 % (42.2-75.2) 03/25/25:
Lymphocytes % 14.6 % (20.5-51.1) L 03/25/25 11:
Monocytes % 7.1 % (1.7-9.3) 03/25/25 11:
Eosinophils % 1.3 % (0-6) 03/25/25:
Basophils % 0.5 % (0-2) 03/25/25 11:
Creatinine 0.8 mg/dL (0.6-1.0) 03/26/25 04:37
Vital Signs
Vital Signs
Temp Pulse Resp BP Pulse Ox
97.6 F 53 16 108/70 99
03/26/25 07:20 03/26/25 07:20 03/26/25 07:20 03/26/25 07:20 03/26/25 07:20
[2025-03-26 15:32] VITALS: BP 100/70
[2025-03-26] MEDS: HYDROCORTONE/CORTEF 10 MG PO (16:42)
[2025-03-26] MEDS: ULTRAM 50 MG PO (20:26)
[2025-03-26] MEDS: NEURONTIN 300 MG PO (21:45)
[2025-03-26] MEDS: CELEXA 10 MG PO (21:45)
[2025-03-26 23:20] VITALS: BP 119/76
[2025-03-27] MEDS: D5/0.45%NACL 1000 IV ×2 (01:49→14:51)
[2025-03-27] MEDS: DILAUDID 0.25 MG IV ×6 (02:09→21:17)
[2025-03-27] MEDS: TYLENOL PO ×2 (03:30→23:35)
[2025-03-27 06:13] LABS: Ferritin 117.0 ng/ml (11.1-264.0)
[2025-03-27 06:27] LABS: Vitamin B12 550 pg/ml (239-931)
[2025-03-27 07:24] VITALS: BP 126/79
[2025-03-27] MEDS: TOPAMAX 150 MG PO ×2 (08:04→20:12)
[2025-03-27] MEDS: TYLENOL 650 MG PO ×4 (08:04→20:12)
[2025-03-27] MEDS: HYDROCORTONE/CORTEF 20 MG PO (08:04)
[2025-03-27] MEDS: PROTONIX 40 MG PO (08:04)
[2025-03-27] MEDS: VITAMIN D3 (cholecalciferol) 50 MCG PO (08:05)
--- NOTE | 2025-03-27 08:14 | W.PN.ONC2 ---
Today's Communication / Plan
-
Continue constipation management. Outpatient Tx has not been successful. Needs aggressive bowel management protocol.
Holding off on Panhematin as discussed.
Abd x ray: Moderate fecal material throughout the colon. Progressed. No evidence of intestinal obstruction.
Patient known to GI. Might make sense for inpatient GI consult. Will defer to primary team.
Impression
Impression
p/w abdominal pain, nausea which may reflect recurrent chronic constipation. She feels improved after moving her bowels overnight. ab xray today continues to show moderate fecal material thought the colon
AIP s/p panhematin 03/13/2025
Hx iron overload due to panhematin
Vitamin B12 deficency -receives parentaral B12 OP
Plan
Plan
constipation management per primary service. Consider GI consult as she follows with them as outpatient.
Holding off on inpatient panhematin. SG discussed with patient -agreeable since feels somewhat better after moving bowels but still feels like this is a porphyria attack.
constipation may reflect chronic and recent increase in opioid use discussed with pt
ferritin = 117, B12 = 550; both normal
Has OP follow up with Dr. Rust 04/01/2025 for further management
Subjective/Objective
Chief Complaint
ACS Heme onc
Subjective
Constipated, abdominal distension. Leg pains. Feels like porphyria attack exacerbated by constipation. Saw GI as outpatient wasn't too helpful.
Vital Signs:
Vital Signs
Temp Pulse Resp BP Pulse Ox
98.2 F 54 14 119/76 99
03/26/25 23:20 03/26/25 23:20 03/26/25 23:20 03/26/25 23:20 03/26/25 23:20
Lab Results:
Laboratory Data
WBC 9.5 10^3/uL (4.8-10.8) 03/26/25 04:37
Hgb 11.7 g/dL (12.0-16.0) L 03/26/25 04:37
Plt Count 180 10^3/uL (130-400) 03/26/25 04:37
eGFR > 60.00 03/26/25 04:37
Physical Exam
HEENT: No Jaundice
Cardiology: S1 and S2
Pulmonary: Clear
GI: Distended
Extremities: No C/C/E
[2025-03-27] MEDS: COLACE 100 MG PO ×2 (12:02→20:12)
[2025-03-27] MEDS: MIRALAX 17 GRAMS PO ×2 (12:03→20:13)
[2025-03-27] MEDS: ZOFRAN 4 MG IV ×2 (12:31→21:17)
--- NOTE | 2025-03-27 12:37 | W.PN.HOSP.TC ---
Today's Communication/Plan
-
bowel regimen
repeat abdominal films tomorrow AM
Assessment / Plan
Assessment / Plan
Intractable abdominal pain
-Differential diagnosis broad however likely related to constipation as there is large volume stool within the colon versus acute porphyria attack
-IV fluids with dextrose containing fluids
-make Miralax BID, colace BID, dulcolax supp if no BM this afternoon
-patient concerned constipation triggering acute porphyria attack, appreciate Oncology
-continue diet
-repeat abdominal film tomorrow AM
-IV Dilaudid PRN severe pain
GERD
Continue PPI
Migraine
Continue topiramate
Adrenal insufficiency
Continue hydrocortisone
Chronic regional pain syndrome
Continue gabapentin
Anxiety
Continue citalopram
Vitamin D insufficiency
Continue colecalciferol
DVT prophylaxis
Low molecular weight heparin
Anticipated Discharge: 24 - 48 hours
Subjective/Interval History
-
Date of Service: March 27, 2025
patient complains of significant pain
she had BM yesterday
Objective Data
-
Labs:
Laboratory Results
03/27/25
04:56
Sodium Pending
Potassium Pending
Chloride Pending
Carbon Dioxide Pending
BUN Pending
Creatinine Pending
Glucose Pending
Calcium Pending
Vital Signs:
Vital Signs
Temp Pulse Resp BP Pulse Ox
98.3 F 56 16 126/79 98
03/27/25 07:24 03/27/25 07:24 03/27/25 07:24 03/27/25 07:24 03/27/25 07:24
I&O
03/26/25 03/27/25 03/28/25
06:59 06:59 06:59
Intake Total 960 / 960 720 / 720
Balance 960 / 960 720 / 720
Review of Systems
-
History Source: Patient
All other systems: Reviewed and negative
Physical Exam
-
General: Well Developed, Well Nourished and No Apparent Distress
HEENT: Normocephalic and Atraumatic
Respiratory: Clear to Auscultation; Negative Wheezes or Rhonchi
Cardiac: Regular Rhythm and S1/S2; Negative Murmur
GI: Soft and Other (distended, tenderness, no rebound or guarding )
Musculoskeletal: No Clubbing, No Cyanosis and No Edema
Neuro: AO x 3
Psych: Calm
Data Reviewed
-
Diagnostic Radiology: Report Reviewed by me
Labs: Labs Reviewed by me
[2025-03-27 13:22] LABS: Blood Urea Nitrogen 10 mg/dl (7-17); Calcium 8.0 mg/dl (8.4-10.2); Carbon Dioxide 21 mmol/L (22-30); Chloride 116 mmol/L (98-107); Estimated Creatinine Clearance 53 ml/min; Glucose 113 mg/dl (70-99); Magnesium 2.0 mg/dl (1.6-2.3); Potassium 3.6 mmol/L (3.5-5.1); Sodium 140 mmol/L (135-145); eGFR > 60.00
[2025-03-27] MEDS: DULCOLAX 10 MG RECTAL (14:46)
--- NOTE | 2025-03-27 15:12 | CM ---
Met with patient to obtain information for assessment. Patient stated that she lives with her spouse in a two story single home with three steps to enter. She described herself as independent with all of her ADLs, personal care, bathing and
dressing. She can cook, clean, do [employer] and laundry. Patient can drive and get to her own appointments and do all of her own shopping. Patient has not DME. She has never been to a SNF. She has not had VN.
Patient has a prescription plan and uses, [facility] in [place] for all of her medications.
Patient's PCP is, Deana Harden.
OBS letter signed and in chart.
Plan: Case management will continue to follow and assist with discharge planning. Patient would like to return home when stable.
[2025-03-27 15:18] VITALS: BP 111/67
[2025-03-27] MEDS: HYDROCORTONE/CORTEF 10 MG PO (17:59)
[2025-03-27] MEDS: CELEXA 10 MG PO (20:17)
[2025-03-27] MEDS: NEURONTIN 300 MG PO (20:17)
[2025-03-27 23:12] VITALS: BP 109/60
[2025-03-28] MEDS: DILAUDID 0.25 MG IV ×3 (00:22→09:24)
[2025-03-28] MEDS: TYLENOL 650 MG PO ×5 (00:27→20:44)
[2025-03-28] MEDS: D5/0.45%NACL 1000 IV (01:55)
[2025-03-28] MEDS: TYLENOL PO (04:26)
[2025-03-28 05:38] LABS: Blood Urea Nitrogen 9 mg/dl (7-17); Calcium 7.6 mg/dl (8.4-10.2); Carbon Dioxide 22 mmol/L (22-30); Chloride 117 mmol/L (98-107); Estimated Creatinine Clearance 47 ml/min; Glucose 97 mg/dl (70-99); Magnesium 2.0 mg/dl (1.6-2.3); Potassium 3.7 mmol/L (3.5-5.1); Sodium 142 mmol/L (135-145); eGFR > 60.00
[2025-03-28 07:00] VITALS: BP 123/75
[2025-03-28] MEDS: ZOFRAN 4 MG IV ×2 (09:21→20:47)
[2025-03-28] MEDS: COLACE 100 MG PO ×2 (09:24→20:44)
[2025-03-28] MEDS: VITAMIN D3 (cholecalciferol) 50 MCG PO (09:25)
[2025-03-28] MEDS: MIRALAX 17 GRAMS PO (09:25)
[2025-03-28] MEDS: TOPAMAX 150 MG PO ×2 (09:25→20:44)
[2025-03-28] MEDS: PROTONIX 40 MG PO (09:25)
[2025-03-28] MEDS: HYDROCORTONE/CORTEF 20 MG PO (09:25)
--- NOTE | 2025-03-28 10:17 | W.PN.HOSP.TC ---
Today's Communication/Plan
-
advance diet
pain control
follow up further Hematology recommendations
Assessment / Plan
Assessment / Plan
Intractable abdominal pain
Hx Porphyria
-Constipation likely contributed but now treated and she continues to have pain - concern for acute porphyria attack
-advance diet
-pain control
-OK to stop fluids
-follow up furtehr Hematology recs
GERD
Continue PPI
Migraine
Continue topiramate
Adrenal insufficiency
Continue hydrocortisone
Chronic regional pain syndrome
Continue gabapentin
Anxiety
Continue citalopram
Vitamin D insufficiency
Continue colecalciferol
DVT prophylaxis
Low molecular weight heparin
Anticipated Discharge: 24 - 48 hours
Subjective/Interval History
-
Date of Service: March 28, 2025
continues to have pain
despite relief from constipation
Objective Data
-
Labs:
Laboratory Results
03/28/25
04:45
Sodium 142
Potassium 3.7
Chloride 117 H
Carbon Dioxide 22
BUN 9
Creatinine 0.9
Glucose 97
Calcium 7.6 L
Vital Signs:
Vital Signs
Temp Pulse Resp BP Pulse Ox
97.9 F 53 16 123/75 99
03/28/25 07:00 03/28/25 07:00 03/28/25 07:00 03/28/25 07:00 03/28/25 07:00
I&O
03/27/25 03/28/25 03/29/25
06:59 06:59 06:59
Intake Total 720 / 720 1400 / 1400
Balance 720 / 720 1400 / 1400
Review of Systems
-
History Source: Patient
All other systems: Reviewed and negative
Physical Exam
-
General: Well Developed, Well Nourished and No Apparent Distress
HEENT: Normocephalic and Atraumatic
Respiratory: Clear to Auscultation; Negative Wheezes or Rhonchi
Cardiac: Regular Rhythm and S1/S2; Negative Murmur
GI: Soft and Other (distended, tenderness, no rebound or guarding )
Musculoskeletal: No Clubbing, No Cyanosis and No Edema
Neuro: AO x 3
Psych: Calm
Data Reviewed
-
Diagnostic Radiology: Report Reviewed by me
Labs: Labs Reviewed by me
[2025-03-28] MEDS: D5/0.45%NACL IV (10:20)
--- NOTE | 2025-03-28 11:09 | W.PN.ONC2 ---
Today's Communication / Plan
-
bowel regimen
increase gabepentin to 300mg Q8
Impression
Impression
p/w abdominal pain, nausea which may reflect recurrent chronic constipation. She feels improved after moving her bowels overnight. ab xray today continues to show moderate fecal material thought the colon
AIP s/p panhematin 03/13/2025
Hx iron overload due to panhematin
Vitamin B12 deficency -receives parentaral B12 OP
Plan
Plan
constipation management per primary service. Consider GI consult as she follows with them as outpatient.
Holding off on inpatient panhematin. SG discussed with patient -agreeable since feels somewhat better after moving bowels but still feels like this is a porphyria attack.
constipation may reflect chronic and recent increase in opioid use discussed with pt
ferritin = 117, B12 = 550; both normal
Has OP follow up with Dr. Rust 04/01/2025 for further management
Subjective/Objective
Subjective
ab pain, nausea unchanged
Vital Signs:
Vital Signs
Temp Pulse Resp BP Pulse Ox
97.9 F 53 16 123/75 99
03/28/25 07:00 03/28/25 07:00 03/28/25 07:00 03/28/25 07:00 03/28/25 07:00
Lab Results:
Laboratory Data
WBC 9.5 10^3/uL (4.8-10.8) 03/26/25 04:37
Hgb 11.7 g/dL (12.0-16.0) L 03/26/25 04:37
Plt Count 180 10^3/uL (130-400) 03/26/25 04:37
eGFR > 60.00 03/28/25 04:45
Physical Exam
HEENT: No Jaundice
Cardiology: Normal Sinus Rhythm
Pulmonary: Clear
GI: Distended (firm)
Extremities: Pulses Present; No Edema
[2025-03-28] MEDS: D5LR 1000 IV (12:38)
[2025-03-28] MEDS: NEURONTIN 200 MG PO (12:42)
[2025-03-28] MEDS: DILAUDID 0.5 MG IV ×3 (12:46→20:47)
[2025-03-28] MEDS: NEURONTIN 100 MG PO (14:01)
[2025-03-28 15:00] VITALS: BP 124/63
[2025-03-28] MEDS: HYDROCORTONE/CORTEF 10 MG PO (16:47)
[2025-03-28] MEDS: CELEXA 10 MG PO (20:44)
[2025-03-28 23:20] VITALS: BP 97/62
[2025-03-29] MEDS: DILAUDID 0.5 MG IV ×5 (00:32→15:34)
[2025-03-29] MEDS: D5LR 1000 IV ×2 (00:32→13:10)
[2025-03-29] MEDS: TYLENOL 650 MG PO ×6 (00:32→22:35)
--- NOTE | 2025-03-29 07:55 | W.PN.ONC2 ---
Today's Communication / Plan
-
continue gabepentin q8
pain management
consider GI consult
has OP follow up with Dr. Rust 04/01
Impression
Impression
p/w abdominal pain, nausea which may reflect recurrent chronic constipation. She feels improved after moving her bowels overnight. ab xray today continues to show moderate fecal material thought the colon
AIP s/p panhematin 03/13/2025
Hx iron overload due to panhematin
Vitamin B12 deficency -receives parentaral B12 OP
Plan
Plan
constipation management per primary service. Consider GI consult as she follows with them as outpatient.
Holding off on inpatient panhematin. -agreeable since feels somewhat better after moving bowels but still feels like this is a porphyria attack.
constipation may reflect chronic and recent increase in opioid use discussed with pt
ferritin = 117, B12 = 550; both normal
Has OP follow up with Dr. Rust 04/01/2025 for further management
Subjective/Objective
Subjective
moving bowels
urinating
continues with ab cramping and nausea
improved LE symptoms with increased gabepentin
Vital Signs:
Vital Signs
Temp Pulse Resp BP Pulse Ox
98.4 F 55 15 97/62 97
03/28/25 23:20 03/28/25 23:20 03/28/25 23:20 03/28/25 23:20 03/28/25 23:20
Lab Results:
Laboratory Data
WBC 9.5 10^3/uL (4.8-10.8) 03/26/25 04:37
Hgb 11.7 g/dL (12.0-16.0) L 03/26/25 04:37
Plt Count 180 10^3/uL (130-400) 03/26/25 04:37
eGFR > 60.00 03/28/25 04:45
Physical Exam
HEENT: Moist Mucous Membranes; No Jaundice
Cardiology: Normal Sinus Rhythm
Pulmonary: Other (unlabored)
GI: Soft and Distended
Extremities: Pulses Present; No Edema
Neuro: Non Focal
Orders
Orders
Orders From Last 24 Hours
03/28/25 14:00
Gabapentin [Neurontin] 100 mg PO ONCE ONE
03/28/25 16:00
Gabapentin [Neurontin] 300 mg PO Q8
03/29/25 22:00
Gabapentin [Neurontin] 300 mg PO Q8H
[2025-03-29] MEDS: MIRALAX 17 GRAMS PO (07:59)
[2025-03-29] MEDS: VITAMIN D3 (cholecalciferol) 50 MCG PO (07:59)
[2025-03-29] MEDS: PROTONIX 40 MG PO (07:59)
[2025-03-29] MEDS: TOPAMAX 150 MG PO ×2 (07:59→20:36)
[2025-03-29] MEDS: HYDROCORTONE/CORTEF 20 MG PO (07:59)
[2025-03-29 08:00] VITALS: BP 130/73
[2025-03-29] MEDS: TYLENOL PO (08:00)
[2025-03-29] MEDS: COLACE 100 MG PO ×2 (08:00→20:36)
[2025-03-29] MEDS: ULTRAM 50 MG PO (11:15)
[2025-03-29] MEDS: ZOFRAN 4 MG IV ×2 (11:16→20:35)
--- NOTE | 2025-03-29 12:15 | CM ---
Per nursing documentation patient functioning at baseline, still not medically stale for discharge.
Plan: Case management will continue to follow and assist with discharge planning. Will watch for needs.
--- NOTE | 2025-03-29 12:36 | W.PN.HOSP.TC ---
Addendum entered and electronically signed by Loni Espinoza MD 03/29/25 12:41:
patient recently went through significant stress with health scare in family, this may have precipitated flaire.
Addendum entered and electronically signed by Loni Epsinoza MD 03/29/25 12:40:
patient's constipation was treated with resolution seen on x-ray
-continue daily Miralax with evening dose as needed for constipation
-dulcolax supp PRN constipation
Original Note:
Today's Communication/Plan
-
start oral dilaudid with IV PRN breakthrough pain
Assessment / Plan
Assessment / Plan
Intractable abdominal pain
Hx Porphyria
-Constipation likely contributed but now treated and she continues to have pain - concern for acute porphyria attack
-appreciate Hematology, patient cannot have Panhematin inpatient but can be arranged outpatient early next week if necessary
-pain control: [employer] Gabapentin increased to TID; will start PRN oral Dilaudid and continue IV for breakthrough pain
-patient hopes to go home tomorrow. She has follow up with Dr. Rust scheduled for Tuesday morning
GERD
Continue PPI
Migraine
Continue topiramate
Adrenal insufficiency
Continue hydrocortisone
Chronic regional pain syndrome
Continue gabapentin
Anxiety
Continue citalopram
Vitamin D insufficiency
Continue colecalciferol
DVT prophylaxis
Low molecular weight heparin
Anticipated Discharge: 24 - 48 hours
Subjective/Interval History
-
Date of Service: March 29, 2025
continues to have pain similar to prior porphyria attacks - along legs and abdomen
Objective Data
-
Vital Signs:
Vital Signs
Temp Pulse Resp BP Pulse Ox
98.2 F 48 16 130/73 99
03/29/25 07:00 03/29/25 08:00 03/29/25 08:00 03/29/25 08:00 03/29/25 11:58
I&O
03/28/25 03/29/25 03/30/25
06:59 06:59 06:59
Intake Total 1400 / 1400 120 / 120
Balance 1400 / 1400 120 / 120
Review of Systems
-
History Source: Patient
All other systems: Reviewed and negative
Physical Exam
-
General: Well Developed, Well Nourished and No Apparent Distress
HEENT: Normocephalic and Atraumatic
Respiratory: Clear to Auscultation; Negative Wheezes or Rhonchi
Cardiac: Regular Rhythm and S1/S2; Negative Murmur
GI: Soft, Nondistended and Other (tenderness, no rebound or guarding )
Musculoskeletal: No Clubbing, No Cyanosis and No Edema
Neuro: AO x 3
Psych: Calm
Data Reviewed
-
Diagnostic Radiology: Report Reviewed by me
Labs: Labs Reviewed by me
[2025-03-29 15:00] VITALS: BP 135/72
[2025-03-29] MEDS: HYDROCORTONE/CORTEF 10 MG PO (17:02)
[2025-03-29] MEDS: DILAUDID 2 MG PO ×2 (17:02→22:35)
[2025-03-29] MEDS: DILAUDID 4 MG PO (19:48)
[2025-03-29] MEDS: CELEXA 10 MG PO (20:37)
[2025-03-29] MEDS: NEURONTIN 300 MG PO (20:40)
[2025-03-29 23:12] VITALS: BP 123/67
[2025-03-30] MEDS: D5LR 1000 IV (01:18)
[2025-03-30] MEDS: NEURONTIN 300 MG PO ×2 (04:40→13:16)
[2025-03-30] MEDS: TYLENOL 650 MG PO ×3 (04:40→11:53)
[2025-03-30] MEDS: DILAUDID 4 MG PO ×3 (04:43→13:16)
[2025-03-30 07:00] VITALS: BP 120/80
--- NOTE | 2025-03-30 07:06 | W.PN.HOSP.TC ---
Today's Communication/Plan
-
discharge
Assessment / Plan
Assessment / Plan
Physical Exam
General: No acute distress, appears comfortable at this time.
HEENT: Normocephalic and Atraumatic
Respiratory: Clear to Auscultation; Negative Wheezes or Rhonchi
Cardiac: Regular Rhythm and S1/S2; Negative Murmur
GI: Soft, Nondistended, mild tenderness, no rebound or guarding, bowel sounds present
Musculoskeletal: No Clubbing, No Cyanosis and No Edema
Neuro: AO x 3 conversant coherent
Psych: Calm
64F hx Porphyria GERD Migraine Adrenal Insufficiency Chronic Regional pain syndrome anxiety here for acute porphyria attack and associate constipation.
Acute Porphyria Attack
Constipation
Intractable abdominal pain
Hx Porphyria
-Constipation resolved with laxatives and suppository
-appreciate Hematology, patient cannot have Panhematin inpatient but can be arranged outpatient early next week if necessary
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
-Pain since significantly improved, patient looking forward to go home.
-Medically stable for discharge home with outpatient follow up recommendations.
GERD
Continue PPI
Migraine
Continue topiramate
Adrenal insufficiency
Continue hydrocortisone
Chronic regional pain syndrome
Continue gabapentin
Anxiety
Continue citalopram
Vitamin D insufficiency
Continue colecalciferol
DVT prophylaxis
Low molecular weight heparin
Total Time Preparing Discharge __40 minutes including examination of the patient, summary of the hospital stay, instructions for continuing care to all relevant caregivers; and preparation of discharge records, prescriptions, and referral
forms if necessary.
Anticipated Discharge: Today
Subjective/Interval History
-
Date of Service: March 30, 2025
Seen and examined at bedside. Overall reports feeling well, symptoms significantly improved/resolved, including pain and constipation. Denies new acute issues at this time. Eager to go home.
Objective Data
-
Vital Signs:
Vital Signs
Temp Pulse Resp BP Pulse Ox
98.2 F 56 16 123/67 98
03/29/25 23:12 03/29/25 23:12 03/29/25 23:12 03/29/25 23:12 03/29/25 23:12
I&O
03/29/25 03/30/25 03/31/25
06:59 06:59 06:59
Intake Total 120 / 120 1200 / 1200
Balance 120 / 120 1200 / 1200
[2025-03-30 08:41] VITALS: BP 120/80
[2025-03-30] MEDS: HYDROCORTONE/CORTEF 20 MG PO (08:49)
[2025-03-30] MEDS: PROTONIX 40 MG PO (08:49)
[2025-03-30] MEDS: TOPAMAX 150 MG PO (08:49)
[2025-03-30] MEDS: VITAMIN D3 (cholecalciferol) 50 MCG PO (08:49)
[2025-03-30] MEDS: MIRALAX 17 GRAMS PO (08:51)
[2025-03-30] MEDS: COLACE 100 MG PO (08:55)
--- NOTE | 2025-03-30 10:06 | W.PN.ONC ---
Today's Communication / Plan
-
Acute events subsiding
Anticipate discharge
Follow-up in the office Tuesday consider additional dose of Panhematin
Maintain adequate hydration
Continue gabapentin at elevated dose
Follow-up has been arranged
Impression
Impression
p/w abdominal pain, nausea which may reflect recurrent chronic constipation. She feels improved after moving her bowels overnight. ab xray today continues to show moderate fecal material thought the colon
AIP s/p panhematin 03/13/2025
Hx iron overload due to panhematin
Vitamin B12 deficency -receives parentaral B12 OP
Subjective/Objective
Subjective/Objective
Acute symptoms subsiding
Vital Signs:
Vital Signs
Temp Pulse Resp BP Pulse Ox
98.4 F 67 16 120/80 100
03/30/25 07:00 03/30/25 07:00 03/30/25 07:00 03/30/25 07:00 03/30/25 07:00
Physical exam remarkable for resolution of abdominal distention which is typical of her disease associated functional ileus resolution
Lab Results:
Laboratory Data
WBC 9.5 10^3/uL (4.8-10.8) 03/26/25 04:37
Hgb 11.7 g/dL (12.0-16.0) L 03/26/25 04:37
Plt Count 180 10^3/uL (130-400) 03/26/25 04:37
eGFR > 60.00 03/28/25 04:45
--- NOTE | 2025-03-30 14:10 | W.DCSUMMARY ---
Discharge Summary
Discharge Data
Date of Admission: 03/28/25
Date of Discharge: 03/30/25
-
Pending Results: No
Discharge Plan
-
Patient Disposition: Home (Routine Discharge)
Discharge Diagnosis/Procedures: Constipation, Acute Porphyria Flare
Condition: Fair
Diet: Regular
Activity: As tolerated
Driving Restrictions: no driving on narcotics
Bathing Restrictions: None
Activity Restrictions/Additional Instructions:
Follow up with primary care provider in 1 week of discharge and keep your appointment with Hematology.
Colace and Miralax prescribed for constipation. Hold if diarrhea. Ok to switch to as needed, same frequency, if bowel movements are regular.
Gabapentin increased to 300 mg three times a day for pain.
Tylenol, Tramadol, and Oxycodone prescribed as needed for pain. Tylenol for mild pain. Tramadol for moderate pain. Oxycodone for severe pain.
Please take medications as prescribed/recommended and follow up with primary care provider and/or other healthcare provider involved in your care for refills and/or further adjustment to your medication regimen as necessary.
Referrals:
Yimi Rust DO [Active, Hematology / Oncology] - 04/01/25
Deana Harden CRNP [Family Provider, [facility]] - in one week
Additional Discharge Medication Instructions: Take Miralax daily, can increase to twice a day when constipated
Prescriptions:
New
docusate sodium 100 mg Capsule
100 mg PO BID Qty: 60 0RF
Rx Instructions:
Hold if Diarrhea
polyethylene glycol 3350 17 gram Powder In Packet
17 g PO DAILY Qty: 30 0RF
Rx Instructions:
Hold if diarrhea
gabapentin 300 mg Capsule
300 mg PO Q8H Qty: 90 0RF
oxycodone 10 mg tablet
10 mg PO Q6H PRN (Reason: severe pain) Qty: 20 0RF
Continued
citalopram 10 MG tablet
10 mg PO HS
topiramate 100 MG tablet
150 mg PO BID
cholecalciferol (vitamin D3) 2,000 UNITS tablet
2,000 units PO DAILY
hydrocortisone 20 MG tablet
20 mg PO DAILY
Visbiome 112.5 billion cell Capsule
1 cap PO DAILY
omeprazole 20 mg Tablet,Delayed Release (Dr/Ec)
20 mg PO DAILY
hydrocortisone 20 mg Tablet
10 mg PO QPM
Emgality Pen 120 mg/mL pen injector
120 mg SC MONTHLY
Changed
tramadol 50 mg Tablet
50 mg PO Q6HPRN PRN (Reason: moderate pain) Qty: 20 0RF
Discontinued
gabapentin 300 MG capsule
300 mg PO HS
Discharge Orders:
Discharge Patient (As Directed); Ordered 03/30/25
Ordered By: Lulú Matos
Discharge Date and Time
Print Language: CA[place] ISLANDER
[2025-03-30 15:06] VITALS: BP 109/71
--- NOTE | 2025-03-30 15:15 | CM ---
Patient for d/c today
Met w/ patient, no needs identified at this time
IMM verbally reviewed, copy provided, copy on chart
Plan: Home, no needs
== END 2025-03-30 17:49 | disposition home or self-care (01) | DRG 642 ==
LOC: 4 EAST ACU 13:59
PROVIDERS: Nurse Practitioner; Nurse Practitioner Acute Care; Student in an Organized Health Care Education/Training Program; ADMITTING PHYSICIAN Hospitalist; ATTENDING PHYSICIAN Internal Medicine; EMERGENCY PHYSICIAN Student in an Organized Health Care Education/Training Program; FAMILY PHYSICIAN Nurse Practitioner Family; OTHER PHYSICIAN Internal Medicine Hematology & Oncology
DX: E80.21 Acute intermittent (hepatic) porphyria (principal); E27.1 Primary adrenocortical insufficiency; D80.1 Nonfamilial hypogammaglobulinemia; D83.9 Common variable immunodeficiency, unspecified; K59.00 Constipation, unspecified; K21.9 Gastro-esophageal reflux disease without esophagitis; G43.909 Migraine, unspecified, not intractable, without status migrainosus; G89.4 Chronic pain syndrome; F41.9 Anxiety disorder, unspecified; E55.9 Vitamin D deficiency, unspecified; Z87.11 Personal history of peptic ulcer disease; I48.91 Unspecified atrial fibrillation; Z87.440 Personal history of urinary (tract) infections; Z87.891 Personal history of nicotine dependence; Z90.49 Acquired absence of other specified parts of digestive tract; Z79.899 Other long term (current) drug therapy
CPT/HCPCS: 74019; 74022; 74177; 80048; 80053; 81003; 82607; 82728; 83605; 83690; 83735; 84443; 84703; 85025; 85027; 93005; 96361; 96374; 96375; 96376; 99285; Q9967

== ENCOUNTER → 2025-05-27 14:00 | Outpatient (REF) | payer MEDICARE, OTHER, SELFPAY ==
[2025-05-27 11:12] LABS: Hematocrit 38.9 % (37.0-47.0); Hemoglobin 12.6 g/dL (12.0-16.0); Mean Corp Hgb Conc. 32.4 g/dL (33.0-37.0); Mean Corpuscular Volume 92.0 fL (81.0-99.0); Platelet Count 186 10^3/uL (130-400); Red Cell Dist. Width 13.8 % (11.5-14.5)
[2025-05-27 12:07] LABS: ALT (SGPT) < 10 U/L (0-35); AST (SGOT) 17 U/L (14-36); Albumin 4.2 g/dl (3.5-5.0); Alkaline Phosphatase 45 U/L (38-126); Blood Urea Nitrogen 20 mg/dl (7-17); Calcium 8.6 mg/dl (8.4-10.2); Carbon Dioxide 27 mmol/L (22-30); Chloride 109 mmol/L (98-107); Glucose 94 mg/dl (70-99); Potassium 4.2 mmol/L (3.5-5.1); Sodium 141 mmol/L (135-145); Total Protein 6.5 g/dl (6.3-8.2); eGFR > 60.00
[2025-05-27 12:39] LABS: Ferritin 80.1 ng/ml (11.1-264.0)
[2025-05-27 13:10] LABS: Folate 13.0 ng/ml (2.76-20); Vitamin B12 > 1000 pg/ml (239-931)
== END ==
LOC: OIDL 14:00
PROVIDERS: ATTENDING PHYSICIAN Internal Medicine Hematology & Oncology
DX: D83.9 Common variable immunodeficiency, unspecified (principal); E80.21 Acute intermittent (hepatic) porphyria; R11.2 Nausea with vomiting, unspecified; D51.3 Other dietary vitamin B12 deficiency anemia; D80.1 Nonfamilial hypogammaglobulinemia; E86.0 Dehydration
CPT/HCPCS: 80053; 82607; 82728; 82746; 85025

== ENCOUNTER → 2025-06-11 19:13 | Outpatient (REF) | payer MEDICARE, OTHER, SELFPAY | LOC: PAVMRI 19:13 | PROVIDERS: ATTENDING PHYSICIAN Internal Medicine Hematology & Oncology; FAMILY PHYSICIAN Nurse Practitioner Family | DX: D83.9 Common variable immunodeficiency, unspecified (principal); E80.21 Acute intermittent (hepatic) porphyria; R11.2 Nausea with vomiting, unspecified; D51.3 Other dietary vitamin B12 deficiency anemia; D80.1 Nonfamilial hypogammaglobulinemia; E86.0 Dehydration | CPT/HCPCS: 72141 ==

== ENCOUNTER 2025-07-29 11:05 | Inpatient (IN) | payer MEDICARE, OTHER, SELFPAY ==
[2025-07-25 16:49] VITALS: BP 150/97
[2025-07-25 17:21] LABS: Hematocrit 37.9 % (37.0-47.0); Hemoglobin 12.9 g/dL (12.0-16.0); Mean Corp Hgb Conc. 34.0 g/dL (33.0-37.0); Mean Corpuscular Volume 89.8 fL (81.0-99.0); Nucleated Red Blood Cells % 0 %; Platelet Count 180 10^3/uL (130-400); Red Cell Dist. Width 13.3 % (11.5-14.5)
[2025-07-25 17:44] LABS: ALT (SGPT) 12 U/L (0-35); AST (SGOT) 18 U/L (14-36); Albumin 4.2 g/dl (3.5-5.0); Alkaline Phosphatase 47 U/L (38-126); Blood Urea Nitrogen 16 mg/dl (7-17); Calcium 8.1 mg/dl (8.4-10.2); Carbon Dioxide 23 mmol/L (22-30); Chloride 112 mmol/L (98-107); Glucose 77 mg/dl (70-99); Lipase 192 U/L (23-300); Potassium 3.6 mmol/L (3.5-5.1); Sodium 140 mmol/L (135-145); Total Protein 6.6 g/dl (6.3-8.2); eGFR > 60.00
[2025-07-25 19:15] VITALS: BP 151/96
--- NOTE | 2025-07-25 19:28 | ED.GENMED ---
History of Present Illness
General
Chief Complaint: Abdominal Pain
Source: patient and records
Exam Limitations: none
Time Seen by Provider: 07/25/25 19:04
History of Present Illness
History of Present Illness:
65yoF with a history of porphyria, adrenal insufficiency, hemochromatosis, complex regional pain syndrome, and GERD presenting with her for evaluation of abdominal pain. She initially thought she had a UTI yesterday. She went to her PCPs
office and had a urinalysis which was normal other than microscopic hematuria. She woke up this morning with diffuse abdominal pain and distention. Pain feels identical to her prior porphyria attacks. She went to the infusion center and received
2L of IV fluids as this sometimes will control her porphyria symptoms. She continued to have severe pain and was sent to the ED for evaluation. Patient also reports urinary retention and has been unable to urinate for the past several hours. She
has required Miner catheter in the past during her porphyria attacks. She typically requires admission for pain control and panhematin treatment when her symptoms get this bad. She denies any fevers or vomiting.
Past History
Past History
ED Past Medical History: Arrthythmia, Other (Porphyria, history of neuropathy, dyspnea, mitral regurg, stomach ulcers, bowel polyps, partial bowel obstruction, chronic UTI, adrenal insufficiency with Paul's disease, chronic pain syndrome,
hemochromatosis. Diverticulitis, UTI, Intussuseption) and Other (Porphyria); Negative Asthma, HTN, Hypercholesterolemia or NIDDM
ED Past Surgical History: Appendectomy, Cholecystectomy, and Other (mvrepair, hemorrhoidectomy, bladder biopsy)
Social History
Tobacco: Former smoker
Alcohol: None
Drug: None
Personal:
Living: with family
Employment: Not employed
Family History
Family History: Other (Noncontributory)
Phy Exam
General Physical Exam
General Presentation: well appearing and mild distress
General Skin: warm and dry
General Mental: alert
ENT Exam
ENT Exam: normocephalic
Pulmonary Exam
Pulmonary Exam: no respiratory distress
Gastrointestinal Exam
Gastrointestinal Exam: soft, distended, tender and other (Abdomen diffusely tender with distention. No rebound or guarding.)
Neurological Exam
Neurological Exam: alert
[place] Coma Scale
Eye Opening: Spontaneous
Verbal Response: Oriented
Motor Response: Obeys Commands
GCS Total Score: 15
Skin Exam
Skin Exam: normal color and warm/dry
Psychiatric Exam
Psychiatric Exam: normal mood/affect
Course
Orders/Labs/Results
Orders:
Orders
07/25/25 17:07
Complete Blood Count/With Diff Urgent
Comprehensive Metabolic Panel Urgent
Lipase Urgent
07/25/25 19:28
Miner Placement- Treatment ONCE
Reason for insertion: Acute Retention
0.9% Sodium Chloride 1000 ml [Nss] 1,000 ml IV BOLUS
HYDROmorphone [Dilaudid] 0.5 mg IV NOW STA
Iohexol [Omnipaque] See Protocol PO NOW STA
07/25/25 19:29
CT Abd/pel W Iv And Oral Contr Urgent
Comment:
Reason For Exam: generalized abd pain, distention
07/25/25 20:05
Urinalysis Reflex To Culture Stat
Date Specimen was Collected: 07/25/25
Time Specimen was Collected: 16:54
07/25/25 20:15
Ondansetron Injectable [Zofran] 4 mg .ROUTE .STK-MED ONE
Ondansetron Injectable [Zofran] 4 mg IV NOW STA
07/25/25 20:39
HYDROmorphone [Dilaudid] 0.5 mg IV NOW STA
07/25/25 22:11
HYDROmorphone [Dilaudid] 1 mg IV NOW STA
07/25/25 23:19
Urine Drug Abuse Screen Urgent
07/25/25 23:21
Porphobilinogen, Urine [S] Urgent
Urine Creatinine Urgent
07/26/25 00:00
Admit/Transfer Patient As Directed
Co-Sign Provider:
Level of Care: Observation services
Assign to:: Medical/Surgical
Physician / Group: Pierre Hickey
Diagnosis: constipation, urinary retention, intractable abdominal pain
Reason for Hospitalization: constipation, urinary retention, intractable abdominal pain
Expected length of stay greater than two midnights?: Yes
ELOS- Estimated Length of Stay in days: 3
I certify the patient meets the requirements for IP care: Yes
07/26/25 00:01
PRN Pain Medication Management As Directed
May give lesser potent ordered pain med per pt: Yes
preference::
Protocol:: Medication orders for pain may be administered in a
manner that supports deferring to patient preference
when the pt is:
- Requesting an ordered lesser potent pain medication.
Least to most potent pain medications are defined
as: acetaminophen < NSAID < tramadol < opioids
(morphine, oxycodone, hydromorphone).
- Requesting a lesser dose of the same medication IF
ORDERED.
- Requesting a less intrusive route of administration
if both routes are prescribed by the provider (PO <
IV).
07/26/25 00:08
Code Status As Directed
Resuscitation Status: Full Code
Abnormal Lab Results
07/25/25
17:07
Chloride 112 H mmol/L
(98-107)
Calcium 8.1 L mg/dl
(8.4-10.2)
07/25/25 17:07
07/25/25 17:07
Vital Signs
Initial and Last Documented VS:
Initial Vital Signs
Temp Pulse Resp BP Pulse Ox
97.8 F 58 16 150/97 98
07/25/25 16:49 07/25/25 16:49 07/25/25 16:49 07/25/25 16:49 07/25/25 16:49
Last Documented Vital Signs
Temp Pulse Resp BP Pulse Ox
97.8 F 51 15 142/77 98
07/25/25 16:49 07/25/25 21:30 07/25/25 21:30 07/25/25 21:00 07/25/25 21:30
MDM/Problems Addressed
Differential Diagnosis Includes:
65yoF here with abd pain and distention that began this AM. Feels like a porphyria attack. Also c/o urinary retention and has not urinated despite receiving 2L NS at the infusion center. Bladder scan >600cc. Abdomen distended with generalized
tenderness. Differential diagnosis includes: urinary retention, constipation, SBO, diverticulitis, porphyria attack
Initial ED plan: Workup initiated in triage and labs unremarkable. Will check CT abdomen with IV/PO contrast. Miner catheter ordered as well as IV Dilaudid.
*Pulse Oximetry
SaO2: 98
Oxygen Mode of Delivery: Room air
Patient hypoxic: no
*Critical Care Note
Total Time (30-74mins, 75-104mins- exclusive of procedures): Not Applicable
Update Note
Update Note:
Miner catheter placed by nursing staff without difficulty. CT shows moderate constipation without other acute findings. Patient requiring multiple doses of IV Dilaudid for pain control. Will admit for further management.
ED Attending Note
-
Portions of this chart may have been created with voice recognition software.� Occasional wrong word or��sound alike� substitutions may have occurred due to the inherent limitations of voice recognition software.
Discharge Plan
Departure
Patient Disposition: Admit
Date of Disposition: 07/25/25
Time of Disposition: 23:08
Presentation/result/management discussed w/ accepting MD/DO: Hospitalist
Discharge Problem:
Intractable abdominal pain
Interventions
Interventions:
*Risk Screen - Suicide Last Done: 07/25/25 16:49
*General Assessment Last Done: 07/25/25 20:18
*Neglect/Abuse Screening Last Done: 07/25/25 16:49
[place] Fall Risk Assessment Tool Last Done: 07/25/25 20:00
CQ-Mcozpb-Ziswxuggot Assessment Last Done: 07/25/25 20:19
[2025-07-25] MEDS: OMNIPAQUE 50 ML PO (19:51)
[2025-07-25 20:00] VITALS: BP 145/89
[2025-07-25] MEDS: NSS 1000 IV (20:00)
[2025-07-25] MEDS: DILAUDID 0.5 MG IV ×2 (20:00→20:46)
[2025-07-25 20:12] LABS: Urine Character Clear (Clear)
[2025-07-25] MEDS: ZOFRAN 4 MG IV (20:16)
[2025-07-25 21:00] VITALS: BP 142/77
[2025-07-25] MEDS: DILAUDID 1 MG IV (23:24)
--- NOTE | 2025-07-25 23:24 | HPS.HSE ---
Addendum entered and electronically signed by Pierre Hickey DO 07/26/25 00:26:
Patient seen and examined independently. Agree with findings and plan as set forth by RAMU rFeed.
Patient is a 65y F with PMH significant for acute intermittent porphyria, adrenal insufficiency and complex regional pain syndrome who presents to ED complaining of abdominal pain and distention. Patient states that she noted the pain this AM
upon waking. She spoke with [facility] and presented for IVF infusion which typically improves her porphyria pain. Her symptoms worsened after 2 liters of IVFs and patient noted that she did not urinate at all following the IVFs. She was
sent o the ED for evaluation. Patient reports chronic issues with constipation. She takes Miralax daily and notes occasional loose / liquid stools (including yesterday). Patient is on chronic Tramadol for pain control.
In the ED she was noted to have urinary retention. Miner was placed for approx 1800cc of dilute urine thus far.
CT was done showing stool burden / constipation.
Ass:
Abdominal Pain / Distention
Chronic Constipation
Acute Urinary Retention secondary to the above
Chronic Pain Syndrome
Chronic Opioid Dependence
AIP
Complex Regional Pain Syndrome
Migraine Headaches
Anxiety / Depression
Plan:
Admit for further evaluation and treatment.
Pain seems likely secondary to constipation + urinary retention > porphyria flare.
Maintain Miner catheter for now. Flomax daily.
Bowel regimen including enema (patient requests this be done in the AM).
Follow for positive results and continued improvement in abdominal pain / distention.
Clear liquids and advance as tolerated.
Continue usual home medications.
Hematology evaluation for additional recommendations.
Original Note:
Family Physician
-
Family Physician: RAMU Ambrose
Chief Complaint
-
abdominal pain
History of Present Illness
Patient is a 65-year-old female with past medical history significant for porphyria, GERD, migraine, adrenal insufficiency, chronic regional pain syndrome and anxiety who presented to [facility] ED for evaluation of abdominal pain. Patient reports that
diffuse abdominal pain and distention was present when she woke this morning. She reports that pain feels identical to her prior porphyria attacks. She was seen at [facility] for IV hydration earlier today receiving 2L and was
unable to urinate so staff there referred her to ED for evaluation and treatment. Patient reports that she has required admission for similar in the past, requiring Miner placement for urinary retention and pain control. Endorses mild nausea and
loose stools yesterday. Denies any fever, chills, cough, shortness of breath, chest pain or vomiting.
Medical History
Past Medical History
Past Medical History: Reports Other
Additional Past Medical History:
Porphyria
GERD
Migraine
Adrenal insufficiency
Chronic regional pain syndrome
Anxiety
Vitamin D insufficiency
Past Surgical History: Reports Other
Additional Past Surgical History:
Cholecystectomy
Valve Repair-mitral
Left clavicle
Left rotator cuff
Social History
Tobacco: Former Smoker (quit 5 years ago)
Alcohol: None
Drug: None
Personal:
Living: With Family
Employment: Retired
Family History
Family History: Not pertinent
Allergies / Home Medications
Allergies reflects when Allergies were last updated in [email or web address].
Home Medications with original date entered in [email or web address]
Allergy/Medication List:
Allergies
Allergy/AdvReac Type Severity Reaction Status Date / Time
fluconazole (From Diflucan) Allergy Rash Verified 07/25/25 16:49
levofloxacin (From Levaquin) Allergy Rash Verified 07/25/25 16:49
Porphyria Allergy Review Uncoded 07/25/25 16:49
list of
medications
that are
unsafe
Home Medications
citalopram 10 mg tablet 10 mg PO HS Mental Health/Anxiety 07/16/17
topiramate 100 mg tablet 150 mg PO BID migraines 07/23/18
cholecalciferol (vitamin D3) 50 mcg (2,000 unit) tablet 2,000 units PO DAILY Supplement 01/15/19
hydrocortisone 20 mg tablet 20 mg PO DAILY Anti-inflammatory 05/19/20
Lactobac no.2-Bifidobac no.1-S. thermo 112.5 billion cell capsule (Visbiome) 1 cap PO DAILY Gastrointestinal issue 02/23/22
omeprazole 20 mg tablet,delayed release 20 mg PO DAILY Gastrointestinal Issue 03/02/23
hydrocortisone 20 mg tablet 10 mg PO QPM Anti-Inflammatory 06/20/23
galcanezumab-gnlm 120 mg/mL subcutaneous pen injector (Emgality Pen) 120 mg SC MONTHLY migraines 01/10/24
docusate sodium 100 mg capsule 100 mg PO BID #60 caps 03/30/25
gabapentin 300 mg capsule 300 mg PO HS 07/25/25
polyethylene glycol 3350 17 gram oral powder packet 17 g PO DAILY PRN constipation 07/25/25
tramadol 50 mg tablet 100 mg PO DAILY 07/25/25
tramadol 50 mg tablet 150 mg PO HS 07/25/25
Review of Systems
-
History Source: Patient
Constitutional: Denies Fever or Chills
EENT: Denies Sore Throat
Respiratory: Denies Cough, Hemoptysis or Trouble Breathing
Cardiac: Denies Chest Pain, Diaphoresis, Palpitations or Syncope
Abdomen/GI: Reports Abdominal Pain, Nausea and Diarrhea; Denies Vomiting
: Reports Difficulty Voiding and Miner; Denies Dysuria, Frequency or Urgency
Musculoskeletal: Denies Joint Pain
Skin: Denies Rash
Neurological: Reports Weakness; Denies Dizzy, Headache or Numbness
Hematologic/Lymphatic: Denies Bleeding
Physical Exam
Vital Signs
Vital Signs
Temp Pulse Resp BP Pulse Ox
97.8 F 51 15 142/77 98
07/25/25 16:49 07/25/25 21:30 07/25/25 21:30 07/25/25 21:00 07/25/25 21:30
Physical Exam
General: Well Developed, Well Nourished, No Apparent Distress, Comfortable and Conversant
HEENT: NormoCephalic, Moist mucous membranes, PERRLA, Nose Appears Normal and Ears Appear Normal
Respiratory: Clear and Non Labored Respirations; No Wheezes, Rales or Rhonchi
Cardiac: S1/S2 and Regular Rhythm; No Murmur, Rub, Gallop or Peripheral Edema
GI: Normal Bowel Sounds, Tender and Distended
Genito-urinary: Clear Urine and Miner
Musculoskeletal: No Clubbing and No Cyanosis
Skin: Warm and IV/Catheter Site (RCW port )
Neuro: Awake and AO x 3
Psych: Calm and Intact Judgment/Insight
Laboratory Results
-
07/25/25 17:07
07/25/25 17:07
Laboratory Results
Total Bilirubin 0.3 mg/dl (0.2-1.3) 07/25/25 17:07
AST 18 U/L (14-36) 07/25/25 17:07
ALT 12 U/L (0-35) 07/25/25 17:07
Alkaline Phosphatase 47 U/L (38-126) 07/25/25 17:07
Lipase 192 U/L (23-300) 07/25/25 17:07
Data Reviewed
-
CT Scan: Report Reviewed by me (Abd/Pel: There are two small nephroliths within the left kidney. These appear unchanged. No evidence for ureteral calculus. Miner catheter present within a collapsed urinary bladder. Status post cholecystectomy.
Dilation of intrahepatic bile ducts similar appearance to previous examination. This i)
Lab Data: Labs Reviewed by me
Impression/Plan
-
IMPRESSION/PLAN:
#abdominal pain, distention and urinary retention 2/2 constipation vs. bowel blockage vs. Porphyria
abdominal pain and distention, urinary retention starting this morning
Labs unremarkable
Abd/Pel CT: There are two small nephroliths within the left kidney. These appear unchanged. No evidence for ureteral calculus.
Miner catheter present within a collapsed urinary bladder.
Status post cholecystectomy. Dilation of intrahepatic bile ducts similar appearance to previous examination. This is likely physiologic, and patient has normal liver function tests today in the emergency department.
Dilation of the pancreatic duct, similar appearance to previous examination. No evidence for pancreatic mass.
No evidence for bowel obstruction or free intraperitoneal air.
Moderate amount of stool throughout the colon, suggesting a degree constipation.
Bony degenerative changes as described.
- Admit to med/surg
- Consult Heme/oncology
- enema tonight
- bowel regimen
- clear liquid diet, advance as tolerated
- pain regimen
#acute urinary retention
likely 2/2 acute constipation
- Miner placed in ED
- start flomax
#GERD
- continue omeprazole
#Migraine
- continue topiramate
- continue Emgality at home
#Adrenal insufficiency
- continue hydrocortisone
#Chronic regional pain syndrome
- continue gabapentin and tramadol
#Anxiety
- continue citalopram
#Vitamin D insufficiency
- continue cholecalciferol
Code status: full code
DVT prophylaxis: Lovenox sq
[2025-07-26 01:38] VITALS: BP 124/77
[2025-07-26 01:50] VITALS: BMI 20.4
[2025-07-26] MEDS: DILAUDID 0.5 MG IV ×5 (01:56→22:20)
[2025-07-26] MEDS: NEURONTIN 300 MG PO ×2 (02:38→21:10)
[2025-07-26] MEDS: ULTRAM 150 MG PO ×2 (02:38→21:10)
[2025-07-26] MEDS: ZOFRAN 4 MG IV (02:39)
--- NOTE | 2025-07-26 02:52 | PTCARENOTE ---
Pt received from ED via stretcher. Ambulated to bed independently. AAOx3, anxious. Refused wipe down w/CHG cloths, would like to defer to daytime. Oriented to surroundings and plan of care discussed. Admission and assessment completed. Pt
w/reuben requests regarding medication schedule, [facility] covering house contacted --> electronic orders received (refer to MAR). R SubQ port accessed, + blood return. Miner draining clear pale yellow urine, urine specimens to be collected per
order. Medicated w/NH IV dilaudid and IV zofran per order. Discussed order for milk and molasses enema, pt agreeable to 0600. Call kimberly w/in reach. Safe environment maintained.
[2025-07-26] MEDS: VISBIOME 1 CAP PO (08:00)
[2025-07-26] MEDS: FLOMAX 0.4 MG PO (08:00)
[2025-07-26] MEDS: COLACE 100 MG PO ×2 (08:00→21:00)
[2025-07-26] MEDS: PROTONIX 40 MG PO (08:00)
[2025-07-26] MEDS: MIRALAX 17 GRAMS PO (08:00)
[2025-07-26] MEDS: TORADOL 15 MG IV ×2 (08:00→15:57)
[2025-07-26] MEDS: ULTRAM 100 MG PO (08:00)
[2025-07-26] MEDS: VITAMIN D3 (cholecalciferol) 50 MCG PO (08:00)
--- NOTE | 2025-07-26 08:06 | W.PN.HOSP.TC ---
Addendum entered and electronically signed by Paul Aguila DO 07/26/25 12:15:
Spoke with hematology, Dr. Potter. He believes that her diagnosis of AIP was made by Dr. Rust many years ago. He is deferring that diagnosis to him.
At this point in time however she does not have a flare of porphyria.
Will treat supportively, treat constipation and urinary retention.
Advance diet to regular.
Anticipate discharge in the next 24 hours if she remains stable.
Original Note:
Today's Communication/Plan
-
Bowel regimen
IV Toradol as needed
Hematology consult
Continue Miner
Assessment / Plan
Assessment / Plan
Gen-AAOx3, NAD
HEENT-NC, AT, anicteric, clear oral mm
Neck-supple
CV-reg, no M, +S1/S2
Lungs-clear B/L
Abd-soft, NT, ND
Ext-no edema
Musculoskeletal-no cyanosis, clubbing
Skin-warm and dry
Neuro-grossly non-focal
Psych-calm, cooperative
Acute abdominal pain -differential diagnosis of severe constipation, urinary retention, acute intermittent porphyria.
Admission CT with oral and IV contrast shows 2 small nephroliths within the left kidney. Miner catheter present within a collapsed urinary bladder. Moderate amount of stool suggesting constipation. Dilation of the pancreatic duct without mass.
Dilation of the intrahepatic bile ducts similar to prior exam. Status postcholecystectomy.
Getting bowel regimen, currently trying to have a bowel movement.
She is asking to increase the dose of her opiates. I explained to her that this will only worsen her constipation and abdominal pain. Will add Toradol IV as needed.
Acute urinary retention -Miner catheter inserted. Suspect urinary retention due to severe constipation. Voiding trial prior to discharge.
Acute intermittent porphyria -hematology consulted. I do not see elevated porphobilinogen's in our system going back several years. In fact, the levels I see are all normal.
She was admitted to our hospital in March of this year for evaluation of abdominal pain, porphobilinogen was not checked at that time for unclear reasons.
Last dose of Panhematin was March 13, 2025.
Chronic pain syndrome/chronic opiate dependence
Complex regional pain syndrome
GERD
Chronic adrenal insufficiency -continue hydrocortisone.
Migraine headaches
Hx Chronic B12 deficiency -last B12 level greater than 1000, 05/27/2025. Hemoglobin normal. MCV normal.
Anxiety/depression
Full code
Anticipated Discharge: 24 - 48 hours
Subjective/Interval History
-
Date of Service: July 26, 2025
Patient seen and examined. Complaining of worse abdominal pain today compared to yesterday. Received an enema this morning, trying to have a bowel movement.
Objective Data
-
Vital Signs:
Vital Signs
Temp Pulse Resp BP Pulse Ox
97.4 F 55 20 124/77 98
07/26/25 01:38 07/26/25 01:38 07/26/25 01:38 07/26/25 01:38 07/26/25 01:38
I&O
07/25/25 07/26/25 07/27/25
06:59 06:59 06:59
Intake Total 60 / 60
Output Total 1700 / 1700
Balance -1640 / -1640
Review of Systems
-
History Source: Patient
All other systems: Reviewed and negative
[2025-07-26] MEDS: HYDROCORTONE/CORTEF 20 MG PO (08:07)
[2025-07-26 08:18] VITALS: BP 89/52
[2025-07-26] MEDS: TOPAMAX 150 MG PO ×2 (08:36→21:00)
--- NOTE | 2025-07-26 10:39 | CM ---
Chart reviewed and spoke with patient at bedside
Lives with in [address]
Independent with ADLs and ambulation
no DME
PCP Deana Harden
[facility]
hx of [facility]
no hx of SNF
DCP is to go home with no needs
can provide transportation
Cm will continue to follow up for any dcp needs
--- NOTE | 2025-07-26 11:20 | CM ---
RICARDO Reviewed and signed by pt
[2025-07-26 11:47] VITALS: BP 100/65
--- NOTE | 2025-07-26 11:49 | CON.ONC ---
Consultation
-
Date Consultation Requested: 07/26/25
Date Consultation Performed: 07/26/25
Requesting Provider: Janelle Acuna CRNP
Performing Provider: Dr. Potter
Reason for Consultation: h/o AIP
Impression
Impression
abdominal pain
constipation
narcotic use
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
Plan
Plan
1. Abdominal pain - The etiology of the patient's abdominal pain may be multifactorial in nature. She notes it is not c/w w/ her 'usual' abdominal pain, which in the past which has been attributed to AIP. Constipation was demonstrated on CT imaging,
which could be a contributing factor. W/ bowel regimen she has had some stool this am w/ some improvement. Pain management as per primary service.
2. h/o AIP
-consider IVF - w/ D5 for hydration
-CBC w/o anemia
-cont follow CBC and electrolytes
-f/u as outpt w/ Dr. Rust for continued management
Will continue to follow with you.
Patient History
History of Present Illness
65y/o female seen in hematology consultation today.
The patient is under the care of Dr. Rust for acute intermittent porphyria (AIP), last receiving panhematin w/ Dr. Rust in April. She has had multiple hospitalizations over the past several years for abdominal pain and related symptoms.
She now presents to the [facility] ER w/ abdominal pain. She notes it is not her 'usual' abdominal pain, that she experiences. CT imaging in the ER revealed two small nephroliths within the left kidney - unchanged. No evidence for ureteral
calculus. Status post cholecystectomy. Dilation of intrahepatic bile ducts similar appearance to previous examination. Dilation of the pancreatic duct, similar appearance to previous examination. No evidence for pancreatic mass. No evidence for
bowel obstruction or free intraperitoneal air. Moderate amount of stool throughout the colon, suggesting a degree constipation.
She has been placed on a bowel regimen, w/ some stool this am, w/ some improvement in abdominal discomfort. No nausea, vomiting, blood in her stool or urine. No headaches. No SOB or chest pain. No fevers or chills.
Past-Medical/Surgical History
PMH:
AIP - dx and managed by Dr. Rust
common variable immunodeficiency
nonfamilial hypogammaglobulinemia
B12 deficiency
iron overload - due to panhematin
peripheral neuropathy
jarocho's disease
empty sella syndrome
mitral regurgitation
PSH:
appendectomy
cholecystectomy
C-sectio
mitral valve repair
hemorrhoidectomy
bladder biopsy
SH:
former smoker
denies ETOH
FH: non-contributory
Allergies: fluconazole, levofloxacin, prophyria related meds
Patient Medication
�Medication �Instructions �Recorded �Confirmed �Last Taken �Type
citalopram 10 mg tablet 10 mg PO HS Mental Health/Anxiety 07/16/17 07/25/25 01/09/24 History
topiramate 100 mg tablet 150 mg PO BID migraines 07/23/18 07/25/25 03/25/25 History
cholecalciferol (vitamin D3) 50 2,000 units PO DAILY Supplement 01/15/19 07/25/25 01/10/24 History
mcg (2,000 unit) tablet
hydrocortisone 20 mg tablet 20 mg PO DAILY Anti-inflammatory 05/19/20 07/25/25 03/25/25 History
Lactobac no.2-Bifidobac no.1-S. 1 cap PO DAILY Gastrointestinal 02/23/22 07/25/25 01/10/24 History
thermo 112.5 billion cell capsule issue
(Visbiome)
omeprazole 20 mg tablet,delayed 20 mg PO DAILY Gastrointestinal 03/02/23 07/25/25 01/10/24 History
release Issue
hydrocortisone 20 mg tablet 10 mg PO QPM Anti-Inflammatory 06/20/23 07/25/25 03/24/25 History
galcanezumab-gnlm 120 mg/mL 120 mg SC MONTHLY migraines 01/10/24 07/25/25 12/19/23 History
subcutaneous pen injector
(Emgality Pen)
docusate sodium 100 mg capsule 100 mg PO BID #60 caps 03/30/25 07/25/25 Unknown Rx
gabapentin 300 mg capsule 300 mg PO HS 07/25/25 07/25/25 Unknown History
polyethylene glycol 3350 17 gram 17 g PO DAILY PRN constipation 07/25/25 07/25/25 Unknown History
oral powder packet
tramadol 50 mg tablet 100 mg PO DAILY 07/25/25 07/25/25 Unknown History
tramadol 50 mg tablet 150 mg PO HS 07/25/25 07/25/25 Unknown History
Active Medications
Generic Name Dose Route Start Last Admin
Trade Name Freq PRN Reason Stop Dose Admin
Bisacodyl 10 mg 07/26/25 01:21
Bisacodyl 10 Mg Rectal Suppository RECTAL 08/23/25 01:20
[id number] PRN
constipation
Cholecalciferol 50 mcg 07/26/25 08:00 07/26/25 08:00
Cholecalciferol (Vitamin D3) 50 Mcg Tablet (2,000 Units) PO 08/23/25 07:59 50 mcg
DAILY LIZET Administration
Citalopram Hydrobromide 10 mg 07/26/25 22:00
Citalopram 10 Mg Tablet PO 08/23/25 21:59
HS LIZET
Docusate Sodium 100 mg 07/26/25 08:00 07/26/25 08:00
Docusate Sodium 100 Mg Capsule PO 08/23/25 07:59 100 mg
BID LIZET Administration
Enoxaparin Sodium 40 mg 07/26/25 18:00
Enoxaparin Sodium 40 Mg/0.4 Ml Syringe SC 08/23/25 17:59
QPM LIZET
Gabapentin 300 mg 07/26/25 22:00
Gabapentin 300 Mg Capsule PO 08/23/25 21:59
HS LIZET
Heparin Sodium (Porcine) 250 unit 07/26/25 02:15 07/26/25 06:13
Heparin Flush Pf (100 Unit/Ml) 5 Ml Syringe IV 08/23/25 02:14 250 unit
PER PROTOCOL LIZET Administration
Hydrocortisone 20 mg 07/26/25 08:00 07/26/25 08:07
Hydrocortisone 20 Mg Tablet PO 08/23/25 07:59 20 mg
DAILY LIZET Administration
Hydrocortisone 10 mg 07/26/25 18:00
Hydrocortisone 20 Mg Tablet PO 08/23/25 17:59
QPM LIZET
Hydromorphone HCl 0.5 mg 07/26/25 01:21 07/26/25 10:54
Hydromorphone 0.5 Mg/0.5 Ml Syringe IV 08/09/25 01:20 0.5 mg
Q4HPRN PRN Administration
severe pain
Ketorolac Tromethamine 15 mg 07/26/25 07:33 07/26/25 08:00
Ketorolac 15 Mg/Ml Injection IV 07/31/25 07:32 15 mg
Q6HPRN PRN Administration
abdominal pain
Lactobacillus/Bifidobacterium 1 cap 07/26/25 08:00 07/26/25 08:00
Lactobac/Bifidobac (Visbiome) PO 08/23/25 07:59 1 cap
DAILY LIZET Administration
Pantoprazole Sodium 40 mg 07/26/25 08:00 07/26/25 08:00
Pantoprazole 40 Mg Delayed Release Tablet PO 08/23/25 07:59 40 mg
DAILY LIZET Administration
Polyethylene Glycol 17 grams 07/26/25 08:00 07/26/25 08:00
Polyethylene Glycol Powder 17 Grams Packet PO 08/23/25 07:59 17 grams
DAILY LIZET Administration
Senna/Docusate Sodium 1 tablet 07/26/25 01:21
Docusate W/Senna (Oly-Colace) Tablet PO 08/23/25 01:20
BIDPRN PRN
constipation
Sodium Chloride 0 flush 07/26/25 02:00
Sodium Chloride 0.9% (Flush) Syringe IV 08/23/25 01:59
PER PROTOCOL LIZET
Tamsulosin HCl 0.4 mg 07/26/25 08:00 07/26/25 08:00
Tamsulosin 0.4 Mg Capsule PO 08/23/25 07:59 0.4 mg
DAILY LIZET Administration
Topiramate 150 mg 07/26/25 08:00 07/26/25 08:36
Topiramate 100 Mg Tablet PO 08/23/25 07:59 150 mg
BID LIZET Administration
Tramadol HCl 100 mg 07/26/25 08:00 07/26/25 08:00
Tramadol Hcl 50 Mg Tablet PO 08/23/25 07:59 100 mg
DAILY LIZET Administration
Tramadol HCl 150 mg 07/26/25 22:00
Tramadol Hcl 50 Mg Tablet PO 08/23/25 21:59
HS LIZET
Review of Systems
-
A ROS was performed w/ pertinent findings as per HPI.
Physical Exam
-
General: Well Developed and No Apparent Distress
HEENT: Negative Jaundice
Cardiology: Normal Sinus Rhythm
Pulmonary: Clear
GI: Soft
Extremities: No C/C/E
Neurology: Non Focal
Labs
Lab Results
WBC 5.5 10^3/uL (4.8-10.8) 07/25/25 17:07
RBC 4.22 10^6/uL (4.20-5.40) 07/25/25 17:07
Hgb 12.9 g/dL (12.0-16.0) 07/25/25 17:07
Hct 37.9 % (37.0-47.0) 07/25/25 17:07
MCV 89.8 fL (81.0-99.0) 07/25/25 17:07
MCH 30.6 pg (27.0-31.0) 07/25/25 17:07
MCHC 34.0 g/dL (33.0-37.0) 07/25/25 17:07
RDW 13.3 % (11.5-14.5) 07/25/25 17:07
Plt Count 180 10^3/uL (130-400) 07/25/25 17:07
MPV 9.1 fL (7.4-10.4) 07/25/25 17:07
Abs Immat Gran (auto) 0.0 10^3/uL (0-0.05) 07/25/25 17:07
Absolute Neuts (auto) 3.1 10^3/uL (1.4-6.5) 07/25/25 17:07
Absolute Lymphs (auto) 1.8 10^3/uL (1.2-3.4) 07/25/25 17:07
Absolute Monos (auto) 0.4 10^3/uL (0.1-0.6) 07/25/25 17:07
Absolute Eos (auto) 0.1 10^3/uL (0-0.7) 07/25/25 17:07
Absolute Basos (auto) 0.0 10^3/uL (0-0.2) 07/25/25 17:07
Immature Gran % 0.2 % (0-0.5) 07/25/25 17:07
Neutrophils % 56.2 % (42.2-75.2) 07/25/25 17:07
Lymphocytes % 33.2 % (20.5-51.1) 07/25/25 17:07
Monocytes % 8.1 % (1.7-9.3) 07/25/25 17:07
Eosinophils % 1.7 % (0-6) 07/25/25 17:07
Basophils % 0.6 % (0-2) 07/25/25 17:07
Creatinine 0.9 mg/dL (0.6-1.0) 07/25/25 17:07
Vital Signs
Vital Signs
Temp Pulse Resp BP Pulse Ox
97.6 F 60 14 100/65 99
07/26/25 08:18 07/26/25 11:47 07/26/25 08:18 07/26/25 11:47 07/26/25 08:18
[2025-07-26] MEDS: D5/0.45%NACL 1000 IV ×2 (13:19→22:59)
[2025-07-26 15:28] VITALS: BP 99/58
--- NOTE | 2025-07-26 16:00 | PTCARENOTE ---
Miner dc'd at 1pm, due to void at 7pm, hat placed in toilet. D5 1/2 @ 100ml/hr initiated as ordered via [facility]. Pt ordered a regular diet, unable to eat due to ab pain. 15 mg IV Toradol given at this time.
[2025-07-26] MEDS: HYDROCORTONE/CORTEF 10 MG PO (17:38)
[2025-07-26] MEDS: CELEXA 10 MG PO (21:10)
[2025-07-26 23:00] VITALS: BP 116/66
[2025-07-27] MEDS: DILAUDID 0.5 MG IV ×4 (03:54→20:43)
[2025-07-27 07:00] VITALS: BP 101/62
[2025-07-27] MEDS: MIRALAX 17 GRAMS PO (08:22)
--- NOTE | 2025-07-27 08:22 | W.PN.HOSP.TC ---
Today's Communication/Plan
-
Continue IV fluids
Continue analgesics
Change Toradol to [id number]
Assessment / Plan
Assessment / Plan
Gen-AAOx3, NAD
HEENT-NC, AT, anicteric, clear oral mm
Neck-supple
CV-reg, no M, +S1/S2
Lungs-clear B/L
Abd-soft, NT, ND
Ext-no edema
Musculoskeletal-no cyanosis, clubbing
Skin-warm and dry
Neuro-grossly non-focal
Psych-calm, cooperative
Acute abdominal pain -differential diagnosis of severe constipation, urinary retention, acute intermittent porphyria.
Admission CT with oral and IV contrast shows 2 small nephroliths within the left kidney. Miner catheter present within a collapsed urinary bladder. Moderate amount of stool suggesting constipation. Dilation of the pancreatic duct without mass.
Dilation of the intrahepatic bile ducts similar to prior exam. Status postcholecystectomy.
Getting bowel regimen, currently trying to have a bowel movement.
Continue IV fluids, IV opiates, change Toradol to [id number].
Patient feels that her current attack of abdominal pain is consistent with her porphyria attack.
Await laboratory confirmation of porphyria attack although patient states that multiple episodes in the past of porphyria exacerbation came up negative on laboratory analysis.
Acute urinary retention -Miner catheter inserted. Suspect urinary retention due to severe constipation, versus porphyria attack. Voiding trial prior to discharge.
Acute intermittent porphyria -hematology consulted. I do not see elevated porphobilinogen's in our system going back several years. In fact, the levels I see are all normal.
She was admitted to our hospital in March of this year for evaluation of abdominal pain, porphobilinogen was not checked at that time for unclear reasons.
Last dose of Panhematin was March 13, 2025.
Patient states she had genetic testing for porphyria in the past that came up borderline.
Chronic pain syndrome/chronic opiate dependence
Complex regional pain syndrome
GERD
Chronic adrenal insufficiency -continue hydrocortisone.
Migraine headaches
Hx Chronic B12 deficiency -last B12 level greater than 1000, 05/27/2025. Hemoglobin normal. MCV normal.
Anxiety/depression
Full code
Anticipated Discharge: 24 - 48 hours
Subjective/Interval History
-
Date of Service: July 27, 2025
Patient seen and examined. Complaining of ongoing abdominal discomfort.
Objective Data
-
Vital Signs:
Vital Signs
Temp Pulse Resp BP Pulse Ox
97.8 F 52 18 101/62 100
07/27/25 07:00 07/27/25 07:00 07/27/25 07:00 07/27/25 07:00 07/27/25 07:00
I&O
07/26/25 07/27/25 07/28/25
06:59 06:59 06:59
Intake Total 60 / 60
Output Total 1700 / 1700 1100 / 1100
Balance -1640 / -1640 -1100 / -1100
Review of Systems
-
History Source: Patient
All other systems: Reviewed and negative
[2025-07-27] MEDS: TOPAMAX 150 MG PO ×2 (08:24→19:41)
[2025-07-27] MEDS: COLACE 100 MG PO ×2 (08:24→19:40)
[2025-07-27] MEDS: HYDROCORTONE/CORTEF 20 MG PO (08:24)
[2025-07-27] MEDS: PROTONIX 40 MG PO (08:24)
[2025-07-27] MEDS: FLOMAX 0.4 MG PO (08:24)
[2025-07-27] MEDS: VITAMIN D3 (cholecalciferol) 50 MCG PO (08:24)
[2025-07-27] MEDS: VISBIOME 1 CAP PO (08:25)
[2025-07-27] MEDS: TORADOL 15 MG IV ×3 (08:25→19:42)
[2025-07-27] MEDS: ULTRAM 100 MG PO (08:25)
[2025-07-27] MEDS: D5/0.45%NACL 1000 IV ×2 (08:44→21:28)
[2025-07-27 09:26] LABS: Hematocrit 33.5 % (37.0-47.0); Hemoglobin 11.3 g/dL (12.0-16.0); Mean Corp Hgb Conc. 33.7 g/dL (33.0-37.0); Mean Corpuscular Volume 89.1 fL (81.0-99.0); Nucleated Red Blood Cells % 0 %; Platelet Count 152 10^3/uL (130-400); Red Cell Dist. Width 13.1 % (11.5-14.5)
[2025-07-27 09:58] LABS: ALT (SGPT) 18 U/L (0-35); AST (SGOT) 20 U/L (14-36); Albumin 3.2 g/dl (3.5-5.0); Alkaline Phosphatase 46 U/L (38-126); Blood Urea Nitrogen 8 mg/dl (7-17); Calcium 7.8 mg/dl (8.4-10.2); Carbon Dioxide 22 mmol/L (22-30); Chloride 110 mmol/L (98-107); Estimated Creatinine Clearance 55 ml/min; Glucose 103 mg/dl (70-99); Potassium 3.4 mmol/L (3.5-5.1); Sodium 137 mmol/L (135-145); Total Protein 5.4 g/dl (6.3-8.2); eGFR > 60.00
[2025-07-27] MEDS: KCL 40 MEQ PO (13:18)
[2025-07-27] MEDS: ZOFRAN 4 MG IV (13:18)
[2025-07-27 13:38] LABS: Magnesium 2.0 mg/dl (1.6-2.3)
[2025-07-27 15:00] VITALS: BP 118/62
[2025-07-27] MEDS: HYDROCORTONE/CORTEF 10 MG PO (19:39)
[2025-07-27] MEDS: KCL 20 MEQ PO (19:39)
[2025-07-27] MEDS: OCEAN, SALINE MIST 1 SPRAYS NASAL (21:26)
[2025-07-27] MEDS: NEURONTIN 300 MG PO (21:57)
[2025-07-27] MEDS: CELEXA 10 MG PO (21:57)
[2025-07-27] MEDS: ULTRAM PO (21:58)
[2025-07-27 23:00] VITALS: BP 132/70
[2025-07-28] MEDS: TORADOL 15 MG IV ×4 (01:28→21:45)
[2025-07-28] MEDS: OCEAN, SALINE MIST 1 SPRAYS NASAL ×2 (01:34→08:50)
--- NOTE | 2025-07-28 03:04 | PTCARENOTE ---
patient refused Lovenox. patient educated on medication. patient continues to refuses. patient complains of nasal congestion. [facility] [place] notified. new orders received see OCT for administration. patient refused tramadol due to already
receiving scheduled Toradol and PRN Dilaudid for pain. patient educated. POC ongoing.
[2025-07-28] MEDS: DILAUDID 0.5 MG IV ×3 (03:38→12:55)
[2025-07-28 05:14] LABS: Blood Urea Nitrogen 8 mg/dl (7-17); Calcium 7.9 mg/dl (8.4-10.2); Carbon Dioxide 20 mmol/L (22-30); Chloride 117 mmol/L (98-107); Estimated Creatinine Clearance 63 ml/min; Glucose 115 mg/dl (70-99); Potassium 3.9 mmol/L (3.5-5.1); Sodium 140 mmol/L (135-145); eGFR > 60.00
[2025-07-28 07:00] VITALS: BP 135/76
[2025-07-28] MEDS: TOPAMAX 150 MG PO ×2 (08:22→19:35)
[2025-07-28] MEDS: PROTONIX 40 MG PO (08:25)
[2025-07-28] MEDS: KCL 20 MEQ PO ×2 (08:25→19:35)
[2025-07-28] MEDS: VITAMIN D3 (cholecalciferol) 50 MCG PO (08:26)
[2025-07-28] MEDS: VISBIOME 1 CAP PO (08:26)
[2025-07-28] MEDS: HYDROCORTONE/CORTEF 20 MG PO (08:26)
[2025-07-28] MEDS: MIRALAX 17 GRAMS PO ×2 (08:26→19:51)
[2025-07-28] MEDS: COLACE 100 MG PO ×2 (08:26→19:35)
[2025-07-28] MEDS: FLOMAX 0.4 MG PO (08:28)
[2025-07-28] MEDS: ULTRAM PO (08:50)
[2025-07-28] MEDS: D5/0.45%NACL 1000 IV ×2 (10:01→22:41)
[2025-07-28] MEDS: SENOKOT-S 1 TABLET PO (10:13)
--- NOTE | 2025-07-28 10:36 | W.PN.HOSP.TC ---
Today's Communication/Plan
-
Continue IV fluids
Analgesics
Bowel regimen
DC Miner
Assessment / Plan
Assessment / Plan
Gen-AAOx3, NAD
HEENT-NC, AT, anicteric, clear oral mm
Neck-supple
CV-reg, no M, +S1/S2
Lungs-clear B/L
Abd-soft, NT, ND
Ext-no edema
Musculoskeletal-no cyanosis, clubbing
Skin-warm and dry
Neuro-grossly non-focal
Psych-calm, cooperative
Acute abdominal pain -differential diagnosis of severe constipation, urinary retention, acute intermittent porphyria.
Admission CT with oral and IV contrast shows 2 small nephroliths within the left kidney. Miner catheter present within a collapsed urinary bladder. Moderate amount of stool suggesting constipation. Dilation of the pancreatic duct without mass.
Dilation of the intrahepatic bile ducts similar to prior exam. Status postcholecystectomy.
Getting bowel regimen, currently trying to have a bowel movement.
Continue IV fluids, IV opiates, continue Toradol to [id number].
Patient feels that her current attack of abdominal pain is consistent with her porphyria attack.
Await laboratory confirmation of porphyria attack although patient states that multiple episodes in the past of porphyria exacerbation came up negative on laboratory analysis.
Acute urinary retention -DC Miner today, voiding trial. Discussed with patient.
Constipation -increase MiraLAX to twice daily. Dulcolax LA as needed. Last BM 07/26.
Multifactorial etiology for constipation including possible AIP flare, opiates, etc.
Hypokalemia -improved.
Acute intermittent porphyria -hematology consulted. I do not see elevated porphobilinogen's in our system going back several years. In fact, the levels I see are all normal.
She was admitted to our hospital in March of this year for evaluation of abdominal pain, porphobilinogen was not checked at that time for unclear reasons.
Last dose of Panhematin was March 13, 2025.
Patient states she had genetic testing for porphyria in the past that came up borderline.
Chronic pain syndrome/chronic opiate dependence
Complex regional pain syndrome
GERD
Chronic adrenal insufficiency -continue hydrocortisone.
Migraine headaches
Hx Chronic B12 deficiency -last B12 level greater than 1000, 05/27/2025. Hemoglobin appears to be at baseline.
Anxiety/depression
Full code
Anticipated Discharge: 24 - 48 hours
Subjective/Interval History
-
Date of Service: July 28, 2025
Patient seen and examined. Complaining of ongoing abdominal pain, constipation.
Objective Data
-
Labs:
Laboratory Results
07/28/25
04:41
Sodium 140
Potassium 3.9
Chloride 117 H
Carbon Dioxide 20 L
BUN 8
Creatinine 0.7
Glucose 115 H
Calcium 7.9 L
Vital Signs:
Vital Signs
Temp Pulse Resp BP Pulse Ox
97.6 F 63 18 135/76 100
07/28/25 07:00 07/28/25 07:00 07/28/25 07:00 07/28/25 07:00 07/28/25 07:00
I&O
07/27/25 07/28/25 07/29/25
06:59 06:59 06:59
Intake Total 1959
Output Total 1100 / 1100 2675 / 267
Balance -1100 / -1100 -715 / -715
Review of Systems
-
History Source: Patient
All other systems: Reviewed and negative
[2025-07-28] MEDS: ZOFRAN 4 MG IV (13:05)
[2025-07-28 15:00] VITALS: BP 129/79
[2025-07-28] MEDS: DILAUDID 1 MG IV ×3 (15:31→23:58)
[2025-07-28] MEDS: HYDROCORTONE/CORTEF 10 MG PO (17:13)
[2025-07-28] MEDS: OCEAN, SALINE MIST 50 SPRAYS NASAL ×2 (19:34→21:45)
[2025-07-28] MEDS: NEURONTIN 300 MG PO (22:40)
[2025-07-28] MEDS: CELEXA 10 MG PO (22:40)
[2025-07-28 23:10] VITALS: BP 130/68
[2025-07-28] MEDS: ULTRAM 150 MG PO (23:15)
[2025-07-29] MEDS: ZOFRAN 4 MG IV (00:08)
[2025-07-29] MEDS: TORADOL 15 MG IV ×4 (02:10→20:00)
[2025-07-29] MEDS: DILAUDID 1 MG IV ×4 (04:04→20:06)
[2025-07-29] MEDS: OCEAN, SALINE MIST 1 SPRAYS NASAL (04:05)
[2025-07-29] MEDS: HYDROCORTONE/CORTEF 20 MG PO (07:51)
[2025-07-29] MEDS: TOPAMAX 150 MG PO ×2 (07:52→19:59)
[2025-07-29] MEDS: MIRALAX 17 GRAMS PO (07:52)
[2025-07-29] MEDS: ULTRAM 100 MG PO (07:52)
[2025-07-29] MEDS: PROTONIX 40 MG PO (07:52)
[2025-07-29] MEDS: COLACE 100 MG PO (07:53)
[2025-07-29] MEDS: VITAMIN D3 (cholecalciferol) 50 MCG PO (07:53)
[2025-07-29] MEDS: KCL 20 MEQ PO ×2 (07:53→19:58)
[2025-07-29] MEDS: FLOMAX 0.4 MG PO (07:53)
[2025-07-29] MEDS: VISBIOME 1 CAP PO (07:54)
[2025-07-29 07:55] VITALS: BP 130/76
[2025-07-29 08:33] LABS: Urine Character Slightly Cloudy (Clear)
[2025-07-29 08:40] LABS: Urine Urothelial Cell 0-2 /LPF (FEW)
[2025-07-29 08:41] LABS: Urine White Cell 50-60 /HPF (0-5)
[2025-07-29 10:20] LABS: Hematocrit 33.3 % (37.0-47.0); Hemoglobin 11.2 g/dL (12.0-16.0); Mean Corp Hgb Conc. 33.6 g/dL (33.0-37.0); Mean Corpuscular Volume 89.0 fL (81.0-99.0); Nucleated Red Blood Cells % 0 %; Platelet Count 145 10^3/uL (130-400); Red Cell Dist. Width 13.4 % (11.5-14.5)
[2025-07-29 10:50] LABS: Blood Urea Nitrogen 5 mg/dl (7-17); Calcium 8.0 mg/dl (8.4-10.2); Carbon Dioxide 19 mmol/L (22-30); Chloride 115 mmol/L (98-107); Estimated Creatinine Clearance 63 ml/min; Glucose 126 mg/dl (70-99); Potassium 3.5 mmol/L (3.5-5.1); Sodium 138 mmol/L (135-145); eGFR > 60.00
[2025-07-29] MEDS: STERILE WATER FOR INJECTION 10 ML IV (12:05)
[2025-07-29] MEDS: ROCEPHIN 1000 MG IV (12:05)
--- NOTE | 2025-07-29 13:16 | CM ---
TT from [facility] - patient LOC change to inpatient
IMM explained & signed. In chart
plan: home, no needs anticipated
--- NOTE | 2025-07-29 13:16 | W.PN.HOSP.TC ---
Today's Communication/Plan
-
Monitor vital signs see plan
Pain control
Start ceftriaxone
Follow urine culture
Hematology to see today
Assessment / Plan
Assessment / Plan
Gen-AAOx3, NAD
HEENT-NC, AT, anicteric, clear oral mm
Neck-supple
CV-reg, no M, +S1/S2
Lungs-clear B/L
Abd-soft, NT, ND
Ext-no edema
Skin-warm and dry
Neuro-grossly non-focal
Psych-calm, cooperative
Acute abdominal pain -differential diagnosis of severe constipation, urinary retention, acute intermittent porphyria.
Admission CT with oral and IV contrast shows 2 small nephroliths within the left kidney. Miner catheter present within a collapsed urinary bladder. Moderate amount of stool suggesting constipation. Dilation of the pancreatic duct without mass.
Dilation of the intrahepatic bile ducts similar to prior exam. Status postcholecystectomy.
Getting bowel regimen, currently trying to have a bowel movement.
Continue IV fluids, IV opiates, continue Toradol to [id number].
Patient feels that her current attack of abdominal pain is consistent with her porphyria attack.
Await laboratory confirmation of porphyria attack although patient states that multiple episodes in the past of porphyria exacerbation came up negative on laboratory analysis.
Hematology following
For constipation, give another dose of enema
Acute urinary retention -voiding trial.
Constipation -increase MiraLAX to twice daily. Dulcolax CT as needed. Last BM 07/26. Give another dose of enema
Multifactorial etiology for constipation including possible AIP flare, opiates, etc.
Hypokalemia -improved.
Acute intermittent porphyria -hematology consulted. I do not see elevated porphobilinogen's in our system going back several years. In fact, the levels I see are all normal.
She was admitted to our hospital in March of this year for evaluation of abdominal pain, porphobilinogen was not checked at that time for unclear reasons.
Last dose of Panhematin was March 13, 2025.
Patient states she had genetic testing for porphyria in the past that came up borderline.
Hematology following, follows with Dr. Rust outpatient
UTI
Does complain of dysuria, frequency
Started ceftriaxone
Urine culture pending
Chronic pain syndrome/chronic opiate dependence
Complex regional pain syndrome
GERD
Chronic adrenal insufficiency -continue hydrocortisone.
Migraine headaches
Hx Chronic B12 deficiency -last B12 level greater than 1000, 05/27/2025. Hemoglobin appears to be at baseline.
Anxiety/depression
Full code
I spent a total of 52 minutes with the patient or on the floor. More than 50% of this time involved counseling and coordination of care.
Anticipated Discharge: 24 - 48 hours
Subjective/Interval History
-
Date of Service: July 29, 2025
Still has pain
Objective Data
-
Labs:
Laboratory Results
07/29/25
09:58
WBC 7.7
Hgb 11.2 L
Hct 33.3 L
Plt Count 145
Sodium 138
Potassium 3.5
Chloride 115 H
Carbon Dioxide 19 L
BUN 5 L
Creatinine 0.7
Glucose 126 H
Calcium 8.0 L
Vital Signs:
Vital Signs
Temp Pulse Resp BP Pulse Ox
98.2 F 58 14 130/76 99
07/29/25 07:55 07/29/25 07:55 07/29/25 07:55 07/29/25 07:55 07/29/25 07:55
I&O
07/28/25 07/29/25 07/30/25
06:59 06:59 06:59
Intake Total 1960 / 1959 2200 / 2200
Output Total 2675 / 2675 550 / 550
Balance -715 / -715 1650 / 1650
--- NOTE | 2025-07-29 15:29 | W.PN.ONC2 ---
Today's Communication / Plan
-
.
Impression
Impression
abdominal pain
constipation
narcotic use
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
Plan
Plan
1. Abdominal pain - The etiology of the patient's abdominal pain may be multifactorial in nature. Constipation was demonstrated on CT imaging, which could be a contributing factor. W/ bowel regimen she has had some stool this am w/ some improvement.
Pain management as per primary service.
2. h/o AIP
-consider IVF - w/ D5 for hydration
-cont follow CBC and electrolytes
-f/u as outpt w/ Dr. Rust for continued management
Subjective/Objective
Subjective
ab discomfort, ab bloating, constipation, and urinary retention
Vital Signs:
Vital Signs
Temp Pulse Resp BP Pulse Ox
98.2 F 58 14 130/76 99
07/29/25 07:55 07/29/25 07:55 07/29/25 07:55 07/29/25 07:55 07/29/25 07:55
Lab Results:
Laboratory Data
WBC 7.7 10^3/uL (4.8-10.8) 07/29/25 09:58
Hgb 11.2 g/dL (12.0-16.0) L 07/29/25 09:58
Plt Count 145 10^3/uL (130-400) 07/29/25 09:58
eGFR > 60.00 07/29/25 09:58
Physical Exam
HEENT: No Jaundice
Pulmonary: Other (unlabored)
GI: Soft
Extremities: Pulses Present; No Edema
[2025-07-29 15:46] VITALS: BP 135/78
[2025-07-29] MEDS: HYDROCORTONE/CORTEF 10 MG PO (17:51)
[2025-07-29] MEDS: MIRALAX PO (19:57)
[2025-07-29] MEDS: COLACE PO (19:57)
[2025-07-29] MEDS: ULTRAM 150 MG PO (21:34)
[2025-07-29] MEDS: NEURONTIN 300 MG PO (21:34)
[2025-07-29] MEDS: CELEXA 10 MG PO (21:38)
[2025-07-29 23:23] VITALS: BP 124/71
[2025-07-30] MEDS: TORADOL 15 MG IV ×4 (01:54→21:34)
[2025-07-30] MEDS: D5/0.45%NACL 1000 IV ×2 (01:54→21:33)
[2025-07-30] MEDS: DILAUDID 1 MG IV ×5 (01:54→22:20)
[2025-07-30] MEDS: ZOFRAN 4 MG IV (02:06)
[2025-07-30 05:47] LABS: Hematocrit 31.5 % (37.0-47.0); Hemoglobin 10.9 g/dL (12.0-16.0); Mean Corp Hgb Conc. 34.6 g/dL (33.0-37.0); Mean Corpuscular Volume 89.0 fL (81.0-99.0); Nucleated Red Blood Cells % 0 %; Platelet Count 138 10^3/uL (130-400); Red Cell Dist. Width 13.4 % (11.5-14.5)
[2025-07-30 06:15] LABS: Blood Urea Nitrogen 7 mg/dl (7-17); Calcium 7.7 mg/dl (8.4-10.2); Carbon Dioxide 21 mmol/L (22-30); Chloride 115 mmol/L (98-107); Estimated Creatinine Clearance 63 ml/min; Glucose 101 mg/dl (70-99); Potassium 3.5 mmol/L (3.5-5.1); Sodium 140 mmol/L (135-145); eGFR > 60.00
[2025-07-30 07:34] VITALS: BP 121/76
[2025-07-30] MEDS: VISBIOME 1 CAP PO (07:56)
[2025-07-30] MEDS: HYDROCORTONE/CORTEF 20 MG PO (07:56)
[2025-07-30] MEDS: PROTONIX 40 MG PO (07:57)
[2025-07-30] MEDS: ULTRAM 100 MG PO (07:58)
[2025-07-30] MEDS: KCL 20 MEQ PO ×2 (07:58→21:37)
[2025-07-30] MEDS: FLOMAX 0.4 MG PO (07:58)
[2025-07-30] MEDS: VITAMIN D3 (cholecalciferol) 50 MCG PO (07:58)
[2025-07-30] MEDS: TOPAMAX 150 MG PO ×2 (07:59→21:36)
[2025-07-30] MEDS: COLACE PO ×2 (08:14→21:32)
[2025-07-30] MEDS: MIRALAX PO ×2 (08:15→21:37)
[2025-07-30] MEDS: OMNIPAQUE 50 ML PO (11:12)
[2025-07-30] MEDS: ROCEPHIN 1000 MG IV (11:15)
[2025-07-30] MEDS: STERILE WATER FOR INJECTION 10 ML IV (11:15)
--- NOTE | 2025-07-30 12:42 | W.PN.HOSP.TC ---
Today's Communication/Plan
-
monitor vitals
see plan
still with pain despite BM
discussed with heme; doesnt appear to meet criteria for Panhematin. repeat CT abdomen with PO contrast
follow urine cx
cw CFTX
Assessment / Plan
Assessment / Plan
Gen-AAOx3, NAD
HEENT-NC, AT, anicteric, clear oral mm
Neck-supple
CV-reg, no M, +S1/S2
Lungs-clear B/L
Abd-soft, NT, ND
Ext-no edema
Skin-warm and dry
Neuro-grossly non-focal
Psych-calm, cooperative
Acute abdominal pain -differential diagnosis of severe constipation, urinary retention, acute intermittent porphyria.
Admission CT with oral and IV contrast shows 2 small nephroliths within the left kidney. Miner catheter present within a collapsed urinary bladder. Moderate amount of stool suggesting constipation. Dilation of the pancreatic duct without mass.
Dilation of the intrahepatic bile ducts similar to prior exam. Status postcholecystectomy.
Getting bowel regimen, currently trying to have a bowel movement.
Continue IV fluids, IV opiates, continue Toradol to [id number].
Patient feels that her current attack of abdominal pain is consistent with her porphyria attack. Discussed with hematology, will repeat CT abdomen today. Per hematology does not appear to meet criteria for Panhematin while inpatient. They will
evaluate based on CT finding.
Await laboratory confirmation of porphyria attack although patient states that multiple episodes in the past of porphyria exacerbation came up negative on laboratory analysis.
Hematology following
Also was constipation, now has bowel movement after enema
Acute urinary retention -voiding trial.
Constipation -increase MiraLAX to twice daily. Dulcolax [place] as needed. Last BM 07/26. Give another dose of enema
Multifactorial etiology for constipation including possible AIP flare, opiates, etc.
Hypokalemia -improved.
Acute intermittent porphyria -hematology consulted. I do not see elevated porphobilinogen's in our system going back several years. In fact, the levels I see are all normal.
She was admitted to our hospital in March of this year for evaluation of abdominal pain, porphobilinogen was not checked at that time for unclear reasons.
Last dose of Panhematin was March 13, 2025.
Patient states she had genetic testing for porphyria in the past that came up borderline.
Hematology following, follows with Dr. Rust outpatient
UTI
Could be secondary to recent catheterization
Does complain of dysuria, frequency
Started ceftriaxone
Urine culture pending
Chronic pain syndrome/chronic opiate dependence
Complex regional pain syndrome
GERD
Chronic adrenal insufficiency -continue hydrocortisone.
Migraine headaches
Hx Chronic B12 deficiency -last B12 level greater than 1000, 05/27/2025. Hemoglobin appears to be at baseline.
Anxiety/depression
Full code
I spent a total of 51 minutes with the patient or on the floor. More than 50% of this time involved counseling and coordination of care.
Anticipated Discharge: 24 - 48 hours
Subjective/Interval History
-
Date of Service: July 30, 2025
still has pain
Objective Data
-
Labs:
Laboratory Results
07/30/25
05:07
WBC 6.4
Hgb 10.9 L
Hct 31.5 L
Plt Count 138
Sodium 140
Potassium 3.5
Chloride 115 H
Carbon Dioxide 21 L
BUN 7
Creatinine 0.7
Glucose 101 H
Calcium 7.7 L
Vital Signs:
Vital Signs
Temp Pulse Resp BP Pulse Ox
98.0 F 59 16 121/76 97
07/30/25 07:34 07/30/25 07:34 07/30/25 07:34 07/30/25 07:34 07/30/25 07:34
I&O
07/29/25 07/30/25 07/31/25
06:59 06:59 06:59
Intake Total 2200 / 2200 960 / 960
Output Total 550 / 550
Balance 1650 / 1650 960 / 960
--- NOTE | 2025-07-30 14:49 | CM ---
patient chart reviewed
repeat CT abdomen with PO contrast
follow urine cx
PLAN: Home, no needs anticipated when stable
[2025-07-30 15:22] VITALS: BP 130/70
[2025-07-30] MEDS: HYDROCORTONE/CORTEF 10 MG PO (17:24)
[2025-07-30] MEDS: ULTRAM 150 MG PO (21:33)
[2025-07-30] MEDS: NEURONTIN 300 MG PO (21:37)
[2025-07-30] MEDS: OCEAN, SALINE MIST 2 SPRAYS NASAL (21:44)
[2025-07-30 23:00] VITALS: BP 133/64
[2025-07-30] MEDS: CELEXA 10 MG PO (23:25)
[2025-07-31] MEDS: TORADOL 15 MG IV ×2 (02:19→07:41)
[2025-07-31] MEDS: DILAUDID 1 MG IV ×3 (02:24→12:21)
[2025-07-31 05:02] LABS: Hematocrit 31.0 % (37.0-47.0); Hemoglobin 10.6 g/dL (12.0-16.0); Mean Corp Hgb Conc. 34.2 g/dL (33.0-37.0); Mean Corpuscular Volume 88.6 fL (81.0-99.0); Nucleated Red Blood Cells % 0 %; Platelet Count 143 10^3/uL (130-400); Red Cell Dist. Width 13.4 % (11.5-14.5)
[2025-07-31 05:25] LABS: Blood Urea Nitrogen 7 mg/dl (7-17); Calcium 7.6 mg/dl (8.4-10.2); Carbon Dioxide 22 mmol/L (22-30); Chloride 114 mmol/L (98-107); Estimated Creatinine Clearance 55 ml/min; Glucose 108 mg/dl (70-99); Potassium 3.4 mmol/L (3.5-5.1); Sodium 139 mmol/L (135-145); eGFR > 60.00
[2025-07-31 07:02] VITALS: BP 101/61
[2025-07-31] MEDS: VISBIOME 1 CAP PO (07:39)
[2025-07-31] MEDS: PROTONIX 40 MG PO (07:39)
[2025-07-31] MEDS: KCL 20 MEQ PO (07:39)
[2025-07-31] MEDS: MIRALAX 17 GRAMS PO (07:39)
[2025-07-31] MEDS: HYDROCORTONE/CORTEF 20 MG PO (07:39)
[2025-07-31] MEDS: TOPAMAX 150 MG PO (07:40)
[2025-07-31] MEDS: VITAMIN D3 (cholecalciferol) 50 MCG PO (07:40)
[2025-07-31] MEDS: COLACE 100 MG PO (07:40)
[2025-07-31] MEDS: FLOMAX 0.4 MG PO (07:41)
[2025-07-31] MEDS: ULTRAM 100 MG PO (07:44)
--- NOTE | 2025-07-31 10:28 | W.PN.ONC2 ---
Today's Communication / Plan
-
No evidence of AIP/porphyria based on normal urine porphobilinogen (PBG) testing and negative genetic workup.
Heme will sign off.
Impression
Impression
Chronic recurrent abdominal pain
Plan
Plan
Reviewed genetic testing for porphyria. All testing NEGATIVE.
All urine porphobilinogen (PBG) testing in 2018, 2019, 2022 were always < 3
At this point...patient does not have a diagnosis of AIP. No role for Panhematin.
GI consult if needed with chronic abdominal pain expert.
Subjective/Objective
Chief Complaint
ACS Heme Onc
Subjective
Still with abdominal pain. Tearful not getting Panhematin.
Vital Signs:
Vital Signs
Temp Pulse Resp BP Pulse Ox
98.4 F 62 18 101/61 98
07/31/25 07:02 07/31/25 07:02 07/31/25 07:02 07/31/25 07:02 07/31/25 07:02
Lab Results:
Laboratory Data
WBC 5.8 10^3/uL (4.8-10.8) 07/31/25 04:35
Hgb 10.6 g/dL (12.0-16.0) L 07/31/25 04:35
Plt Count 143 10^3/uL (130-400) 07/31/25 04:35
eGFR > 60.00 07/31/25 04:[address] 07/30
IMPRESSION:
No acute inflammatory process within the abdomen or pelvis.
No obstructive uropathy. Left renal calculi. No bladder calculus.
Diverticulosis without acute diverticulitis. No bowel obstruction.
Electronically signed by Antwan Echeverria MD, 07/30/2025 2:22 PM
Physical Exam
HEENT: No Jaundice
Cardiology: S1 and S2
Pulmonary: Clear
GI: Soft
Extremities: No C/C/E
--- NOTE | 2025-07-31 12:08 | W.PN.HOSP.TC ---
Today's Communication/Plan
-
Monitor vital signs see plan
Discussed with hematology, no indication for Panhematin at this time
Patient wants to go home, will follow-up with GI outpatient
Discharge today
Transition to p.o. antibiotic
Time of discharge 38 minutes
Assessment / Plan
Assessment / Plan
Gen-AAOx3, NAD
HEENT-NC, AT, anicteric, clear oral mm
Neck-supple
CV-reg, no M, +S1/S2
Lungs-clear B/L
Abd-soft, NT, ND
Ext-no edema
Skin-warm and dry
Neuro-grossly non-focal
Psych-calm, cooperative
Acute abdominal pain -differential diagnosis of severe constipation, urinary retention, acute intermittent porphyria.
Admission CT with oral and IV contrast shows 2 small nephroliths within the left kidney. Miner catheter present within a collapsed urinary bladder. Moderate amount of stool suggesting constipation. Dilation of the pancreatic duct without mass.
Dilation of the intrahepatic bile ducts similar to prior exam. Status postcholecystectomy.
Now with multiple BM after laxative. Repeat CT scan without constipation
Discontinue further Toradol.
Patient feels that her current attack of abdominal pain is consistent with her porphyria attack. Discussed with hematology, Per hematology does not appear to meet criteria for Panhematin while inpatient. Discussed with Dr. Love, no evidence
of AIP/porphyria based on PBG testing
Patient will follow-up with GI outpatient, okay to go home
Hematology following
Maintain laxative on discharge
Acute urinary retention
Resolved, now voiding
Constipation -increase MiraLAX to twice daily. Dulcolax [place] as needed. Last BM 07/26. Give another dose of enema
Multifactorial etiology for constipation including possible AIP flare, opiates, etc.
Hypokalemia
Acute intermittent porphyria -hematology consulted. I do not see elevated porphobilinogen's in our system going back several years. In fact, the levels I see are all normal.
She was admitted to our hospital in March of this year for evaluation of abdominal pain, porphobilinogen was not checked at that time for unclear reasons.
Last dose of Panhematin was March 13, 2025.
Patient states she had genetic testing for porphyria in the past that came up borderline.
Hematology following, follows with Dr. Rust outpatient
UTI
Could be secondary to recent catheterization
Does complain of dysuria, frequency
Started ceftriaxone; switch to cefdinir on discharge
Urine culture with ecoli
Chronic pain syndrome/chronic opiate dependence
Complex regional pain syndrome
GERD
Chronic adrenal insufficiency -continue hydrocortisone.
Migraine headaches
Hx Chronic B12 deficiency -last B12 level greater than 1000, 05/27/2025. Hemoglobin appears to be at baseline.
Anxiety/depression
Full code
Anticipated Discharge: Today
Subjective/Interval History
-
Date of Service: July 31, 2025
denies nausea
Objective Data
-
Labs:
Laboratory Results
07/31/25
04:35
WBC 5.8
Hgb 10.6 L
Hct 31.0 L
Plt Count 143
Sodium 139
Potassium 3.4 L
Chloride 114 H
Carbon Dioxide 22
BUN 7
Creatinine 0.8
Glucose 108 H
Calcium 7.6 L
Vital Signs:
Vital Signs
Temp Pulse Resp BP Pulse Ox
98.4 F 62 18 101/61 98
07/31/25 07:02 07/31/25 07:02 07/31/25 07:02 07/31/25 07:02 07/31/25 07:02
I&O
07/30/25 07/31/25 08/01/25
06:59 06:59 06:59
Intake Total 960 / 960 240 / 240 480 / 480
Balance 960 / 960 240 / 240 480 / 480
[2025-07-31] MEDS: ROCEPHIN 1000 MG IV (12:10)
[2025-07-31] MEDS: STERILE WATER FOR INJECTION 10 ML IV (12:11)
--- NOTE | 2025-07-31 12:15 | W.DCSUMMARY ---
Discharge Summary
Discharge Data
Date of Admission: 07/29/25
Date of Discharge: 07/31/25
-
Pending Results: No
Hospital Course
65-year-old female with past medical history of acute intermittent porphyria, complex regional pain syndrome, GERD, chronic adrenal insufficiency, chronic pain syndrome/chronic opioid dependence, migraine, chronic B12 deficiency, anxiety, depression
came to the hospital with acute abdominal pain. CT scan on admission was done which showed possible constipation. Patient was started on laxative and eventually she had multiple bowel movements which appeared to improve her symptoms. She
continued to had abdominal pain similar to her previous porphyria attack. Hematology saw the patient multiple times while she was here and they did not think patient symptoms are related to porphyria attack and no Panhematin was recommended. She
also had acute urinary retention which over time resolved and she was able to void on her own. She was also found to have urinary tract infection which was treated with antibiotics. On discharge her antibiotics was changed to oral cefdinir to
complete the course. She still had some abdominal discomfort for which she was instructed to follow-up with GI outpatient as well. Once her symptoms were tolerable, she was then discharged home with instructions to follow-up with all her
physicians outpatient.
Discharge Plan
-
Patient Disposition: Home (Routine Discharge)
Discharge Diagnosis/Procedures: Abdominal pain
Urinary tract infection
Condition: Fair
Diet: As tolerated
Activity: As tolerated
Driving Restrictions: As prior to admission
Bathing Restrictions: None
Referrals:
Deana Harden CRNP [Family Provider, Family Practice] - in less than 1 week
Jagruti Young DO [Active, Gastroenterology]
Prescriptions:
New
sennosides-docusate sodium [Senna Plus] 8.6-50 mg Tablet
1 tab PO BIDPRN PRN (Reason: constipation) Qty: 0 0RF
cefdinir 300 mg capsule
300 mg PO BID 7 Days Qty: 14 0RF
Continued
citalopram 10 MG tablet
10 mg PO HS
topiramate 100 MG tablet
150 mg PO BID
cholecalciferol (vitamin D3) 2,000 UNITS tablet
2,000 units PO DAILY
hydrocortisone 20 MG tablet
20 mg PO DAILY
Visbiome 112.5 billion cell Capsule
1 cap PO DAILY
omeprazole 20 mg Tablet,Delayed Release (Dr/Ec)
20 mg PO DAILY
hydrocortisone 20 mg Tablet
10 mg PO QPM
Emgality Pen 120 mg/mL pen injector
120 mg SC MONTHLY
docusate sodium 100 mg Capsule
100 mg PO BID Qty: 60 0RF
Rx Instructions:
Hold if Diarrhea
tramadol 50 mg Tablet
150 mg PO HS
polyethylene glycol 3350 17 gram powder in packet
17 g PO DAILY PRN (Reason: constipation)
Rx Instructions:
Hold if diarrhea
tramadol 50 mg tablet
100 mg PO DAILY
gabapentin 300 mg capsule
300 mg PO HS
Discharge Orders:
Discharge Patient (As Directed); Ordered 07/31/25
Ordered By: Jozef Power
Discharge Date and Time
Discharge Date/Time: 07/31/25 13:46
Print Language: [id number]
[2025-07-31] MEDS: ZOFRAN 4 MG IV (12:21)
[2025-07-31 16:03] LABS: 24 Hour Urine Total Volume Random mL; Creatinine, Urine per Volume 19 mg/dL; Porphobilinogen, Urine <1.0 umol/L; Porphobilinogen/Creat Ratio <0.2 (0.0-0.2); Urine Collection Length Random hr
[2025-07-31 16:03] LABS: 24 Hour Urine Total Volume Random mL; Heptacarboxylporphyrin 1 (0-2); Urine Collection Length Random hr
[2025-08-01 12:19] LABS: Aminolevulinic Acid, Urine 7 umol/L (0-35); Creatinine, Urine per Volume 44 mg/dL
== END 2025-07-31 13:46 | disposition home or self-care (01) | DRG 392 ==
LOC: 3 WEST ACU 11:05
PROVIDERS: Emergency Medicine; Hospitalist; Nurse Practitioner Family; ADMITTING PHYSICIAN Hospitalist; ATTENDING PHYSICIAN Internal Medicine; EMERGENCY PHYSICIAN Emergency Medicine; FAMILY PHYSICIAN Nurse Practitioner Family; OTHER PHYSICIAN Internal Medicine Hematology & Oncology
DX: K59.09 Other constipation (principal); N39.0 Urinary tract infection, site not specified; F11.20 Opioid dependence, uncomplicated; E80.21 Acute intermittent (hepatic) porphyria; E27.40 Unspecified adrenocortical insufficiency; Z87.891 Personal history of nicotine dependence; G89.4 Chronic pain syndrome; F32.A Depression, unspecified; F41.9 Anxiety disorder, unspecified; K21.9 Gastro-esophageal reflux disease without esophagitis; G43.909 Migraine, unspecified, not intractable, without status migrainosus; E87.6 Hypokalemia; G62.9 Polyneuropathy, unspecified; E83.119 Hemochromatosis, unspecified
CPT/HCPCS: 51702; 74176; 74177; 80048; 80053; 80306; 80307; 81003; 81015; 82135; 82570; 83690; 83735; 84110; 84120; 85025; 87077; 87086; 87186; 93005; 96374; 96375; 96376; 99285; Q9967